=== PATIENT | male | born 1960 | race Caucasian/White ===

== ENCOUNTER 2019-08-28 09:19 | Emergency (ER) | payer OTHER, SELFPAY ==
--- NOTE | ~2019-08-28 | XR_ITS ---
XR hand RT min 3V DATE: 08/28/2019 09:52 INDICATION: Laceration at base of fifth finger 2 weeks ago; no Godinez's cyst TECHNIQUE: 3 views COMPARISON: None FINDINGS: No fracture or dislocation, periosteal reaction or bone destruction. No radiopaque foreign body or subcutaneous emphysema. IMPRESSION: Negative Reviewed, dictated and finalized at location A. IMPRESSION: Negative
[2019-08-28 09:35] VITALS: BP 128/92; PULSE 53; RESP 16; TEMP 36.4; O2SAT 98
--- NOTE | 2019-08-28 09:35 | ED.UPPEXIN ---
HPI - Extremity Injury (Upper) General Chief Complaint: Extremity Injury, Upper Stated Complaint: right hand injury Source: patient Mode of arrival: ambulatory Limitations: no limitations History of Present Illness HPI narrative: Jesus Hdez is a 59 yo male with a PMH of gout, copd, HTN, high cholesterol, who comes here for a 2week old laceration on hand. Complaining of pain on dorsum of hand by base of finger 5 Related Data Home Medications Medication Instructions Recorded Confirmed allopurinol [Zyloprim] 100 mg PO DAILY 08/28/19 08/28/19 cetirizine [Zyrtec] 10 mg PO DAILY 08/28/19 08/28/19 fluticasone propionate [Flonase 1 spray INTRANASAL BID 08/28/19 08/28/19 Allergy Relief] losartan 50 mg PO DAILY 08/28/19 08/28/19 metoprolol succinate [Toprol XL] 25 mg PO DAILY 08/28/19 08/28/19 montelukast [Singulair] 10 mg PO DAILY 08/28/19 08/28/19 naproxen [Naprosyn] 500 mg PO BID 08/28/19 08/28/19 pravastatin [Pravachol] 40 mg PO DAILY 08/28/19 08/28/19 Allergies Allergy/AdvReac Type Severity Reaction Status Date / Time No Known Allergies Allergy Verified 08/28/19 09:42 Review of Systems Review of Systems: Narrative: CONSTITUTIONAL: Denies fever, chills, sweats. EYES: Denies visual changes, redness, discharge. ENT: Denies rhinorrhea, congestion, sore throat, otalgia. CARDIOVASCULAR: Denies chest pain, palpitations, edema. RESPIRATORY: Denies dyspnea, wheezing, cough GASTROINTESTINAL: Denies abdominal pain, nausea, vomiting, diarrhea. GENITOURINARY: Denies dysuria, hematuria, abnormal discharge SKIN: Denies rash or itching. NEUROLOGIC: Denies numbness, or focal weakness. PSYCHIATRIC: Denies anxiety or depression. R hand pain PMFSH Family History Family History Other Cerebrovascular accident Diabetes mellitus Family history of arthritis Family history of gout Family history of malignant neoplasm Hypertension Social History Social History Smoking status: Never smoker Alcohol intake: never Gender identity (if verbalized by the patient): Female Comments At time of signature, I agree with nursing past medical, surgical, social and family history. There is no relevant family history pertinent to the presenting complaint. Exam Narrative: Exam Narrative: GENERAL: This is a well-nourished, well-developed patient, in mild distress. HEAD: normocephalic, atraumatic. EYES: Sclera clear/white. Vision is grossly intact. EARS: External ears normal, . Hearing grossly intact. NOSE: External nose normal without nasal discharge, nares without redness, no rhinorrhea. THROAT: Mucous membranes moist, NECK: Neck supple, non-tender CARDIOVASCULAR: Regular rate and rhythm without murmurs, gallops, or rubs. RESPIRATORY: Clear to auscultation. Breath sounds equal bilaterally. No wheezes, rales, or rhonchi. GASTROINTESTINAL: Abdomen soft, SKIN: warm, intact with no suspicious lesions or rash, good texture and turgor. NEURO: awake, alert, and oriented to person, place and time. There were no obvious focal neurologic abnormalities. Steady gait EXTREMITIES: Normal range of motion. R hand pain with use, unable to fully close fist, pain at base finger 5, dorsum, well healed and approximated laceration BACK: Nontender without deformity Course Course Emergency Course: Xray R hand- results. Negative for fracture or dislocation. No radiopaque foreign body o subcutaneous emphysema seen Vital Signs Vital signs: Vital Signs Temperature 97.6 F 08/28/19 09:35 Pulse Rate 53 L 08/28/19 09:35 Respiratory Rate 16 08/28/19 09:35 Blood Pressure 128/92 H 08/28/19 09:35 Pulse Oximetry 98 08/28/19 09:35 Temperature 97.6 F 08/28/19 09:35 Pulse Rate 53 L 08/28/19 09:35 Respiratory Rate 16 08/28/19 09:35 Blood Pressure 128/92 H 08/28/19 09:35 Pulse Oximetry 98 08/28/19 09:35 MDM - Extremit
== END 2019-08-28 10:18 | disposition home or self-care (01) ==
PROVIDERS: Emergency Provider Nurse Practitioner
DX: S69.91XS Unspecified injury of right wrist, hand and finger(s), sequela (principal); X58.XXXS Exposure to other specified factors, sequela; J44.9 Chronic obstructive pulmonary disease, unspecified; E78.00 Pure hypercholesterolemia, unspecified; M10.9 Gout, unspecified; I10 Essential (primary) hypertension
CPT/HCPCS: 73130; 99213; G0463

== ENCOUNTER 2019-09-20 11:56 | Emergency (ER) | payer OTHER, SELFPAY ==
--- NOTE | 2019-09-20 12:04 | ED.DENTAL ---
HPI - Dental/Oral General Chief complaint: Dental/Oral Stated complaint: tooth abscess Time Seen by Provider: 09/20/19 12:04 Source: patient Mode of arrival: ambulatory Limitations: no limitations History of Present Illness HPI Narrative: Jesus Álvarez is a 59 yo male with a history of gout, seasonal allergies, high blood pressure, high cholesterol, who comes here with tooth pain that has been going on for a long while . Patient has a tooth #18 with swelling and pain that is worsened today, makes it difficult for him to eat. Also Sunday he says but pain is what brought him here today. Patient requires simple instructions; poor understanding of physiology and ability to describe his medical condition Related Data Home Medications Medication Instructions Recorded Confirmed allopurinol [Zyloprim] 100 mg PO DAILY 08/28/19 08/28/19 cetirizine [Zyrtec] 10 mg PO DAILY 08/28/19 08/28/19 fluticasone propionate [Flonase 1 spray INTRANASAL BID 08/28/19 08/28/19 Allergy Relief] losartan 50 mg PO DAILY 08/28/19 08/28/19 metoprolol succinate [Toprol XL] 25 mg PO DAILY 08/28/19 08/28/19 montelukast [Singulair] 10 mg PO DAILY 08/28/19 08/28/19 naproxen [Naprosyn] 500 mg PO BID 08/28/19 08/28/19 pravastatin [Pravachol] 40 mg PO DAILY 08/28/19 08/28/19 Allergies Allergy/AdvReac Type Severity Reaction Status Date / Time No Known Allergies Allergy Verified 08/28/19 09:42 Review of Systems Review of Systems: Narrative: CONSTITUTIONAL: Denies fever, chills, sweats. EYES: Denies visual changes, redness, discharge. ENT: Denies rhinorrhea, congestion, sore throat, otalgia. CARDIOVASCULAR: Denies chest pain, palpitations, edema. RESPIRATORY: Denies dyspnea, wheezing, cough GASTROINTESTINAL: Denies abdominal pain, nausea, vomiting, diarrhea. GENITOURINARY: Denies dysuria, hematuria, abnormal discharge SKIN: Denies rash or itching. NEUROLOGIC: Denies numbness, or focal weakness. PSYCHIATRIC: Denies anxiety or depression. Tooth pain left lower back (#18) PMFSH Social History Social History (Reviewed 08/28/19 @ 09:44 by DONN Mcgrath Smoking status: Never smoker Alcohol intake: never Gender identity (if verbalized by the patient): Female Comments At time of signature, I agree with nursing past medical, surgical, social and family history. There is no relevant family history pertinent to the presenting complaint. Exam Narrative: Exam Narrative: GENERAL: This is a well-nourished, well-developed patient, in moderate distress. HEAD: normocephalic, atraumatic. EYES: Sclera clear/white. Vision is grossly intact. EARS: External ears normal, Hearing grossly intact. NOSE: External nose normal without nasal discharge, nares without redness, no rhinorrhea. THROAT: Mucous membranes moist, posterior pharynx erythema, LL tooth (18)- gum inflammation and tenderness NECK: Neck supple, CARDIOVASCULAR: Regular rate and rhythm without murmurs, gallops, or rubs. RESPIRATORY: Clear to auscultation. Breath sounds equal bilaterally. No wheezes, rales, or rhonchi. GASTROINTESTINAL: Abdomen soft, SKIN: warm, intact with no suspicious lesions or rash, good texture and turgor. NEURO: awake, alert, and oriented to person, place and time. There were no obvious focal neurologic abnormalities. Steady gait EXTREMITIES: Normal range of motion. BACK: Nontender without deformity Course Course Emergency Course: Started on insulin and Tylenol 3 Given directions on use of salt water gargle Follow-up with dentist on Sunday Vital Signs Vital signs: Vital Signs Temperature 97.6 F 09/20/19 12:07 Pulse Rate 57 L 09/20/19 12:07 Respiratory Rate 18 09/20/19 12:07 Blood Pressure 154/87 H 09/20/19 12:07 Pulse Oximetry 100 09/20/19 12:07 Temperature 97.6 F 09/20/19 12:07 Pulse Rate 57 L 09/20/19 12:07 Respiratory Rate 18 09/20/19 12:07 Blood Pressure 154/87 H 09/20/19 12:07 Pulse Oximetry 100 09/20/19 12:07
[2019-09-20 12:07] VITALS: BP 154/87; PULSE 57; RESP 18; TEMP 36.4; O2SAT 100
== END 2019-09-20 12:27 | disposition home or self-care (01) ==
PROVIDERS: Emergency Provider Nurse Practitioner
DX: K08.89 Other specified disorders of teeth and supporting structures (principal); E78.00 Pure hypercholesterolemia, unspecified; I10 Essential (primary) hypertension; M10.9 Gout, unspecified
CPT/HCPCS: 99213; G0463

== ENCOUNTER 2019-09-21 11:43 | Emergency (ER) | payer OTHER, SELFPAY ==
[2019-09-21 11:46] VITALS: BP 151/90; PULSE 60; RESP 17; TEMP 36.3; O2SAT 99
--- NOTE | 2019-09-21 12:04 | ED.GENADULT ---
HPI - General Adult General Chief complaint: Dental/Oral Stated complaint: tooth pain Time Seen by Provider: 09/21/19 11:49 Source: patient Mode of arrival: ambulatory Limitations: no limitations History of Present Illness HPI narrative: Patient is a 59-year-old male who presents to emergency department for evaluation of left lower jaw pain radiating to the left side of the face for the last several days with history of dental decay patient on arrival to emergency department in no distress has not taken anything for his symptoms denies URI symptoms notes he will follow with dentistry tomorrow to set up for reevaluation Related Data Home Medications Medication Instructions Recorded Confirmed allopurinol [Zyloprim] 100 mg PO DAILY 08/28/19 08/28/19 cetirizine [Zyrtec] 10 mg PO DAILY 08/28/19 08/28/19 fluticasone propionate [Flonase 1 spray INTRANASAL BID 08/28/19 08/28/19 Allergy Relief] losartan 50 mg PO DAILY 08/28/19 08/28/19 metoprolol succinate [Toprol XL] 25 mg PO DAILY 08/28/19 08/28/19 montelukast [Singulair] 10 mg PO DAILY 08/28/19 08/28/19 naproxen [Naprosyn] 500 mg PO BID 08/28/19 08/28/19 pravastatin [Pravachol] 40 mg PO DAILY 08/28/19 08/28/19 Allergies Allergy/AdvReac Type Severity Reaction Status Date / Time No Known Allergies Allergy Verified 09/21/19 11:44 Review of Systems Review of Systems: All systems reviewed & are unremarkable except as noted in HPI and below PMFSH Past Medical History Medical History (Updated 09/21/19 @ 12:06 by Jorge Matta PA-C) COPD (chronic obstructive pulmonary disease) Gout High blood pressure High cholesterol Seasonal allergies Social History Social History (Updated 09/21/19 @ 12:05 by Jorge Matta PA-C) Smoking status: Current every day smoker Alcohol intake: never Gender identity (if verbalized by the patient): Male Exam Narrative: Exam Narrative: GENERAL: Well-appearing, well-nourished, and in no acute distress. HEAD: Normocephalic, atraumatic. EYES: PERRLA and EOMI. ENT: Nares clear, no rhinorrhea or epistaxis. Mucous membranes moist. Oropharynx without tonsillar hypertrophy exudate or other lesions. Gross dental caries no other deformities floor the mouth is soft uvula midline no trismus or drooling NECK: Supple. No adenopathy or masses. CHEST: Clear to auscultation. No respiratory distress. No wheezes rales or rhonchi HEART: Regular rate and rhythm. No murmur heard. SKIN: Warm, dry, no rash. NEURO: No focal deficits. Alert and oriented x3. PSYCH: Normal mood and affect. Course Course Emergency Course: Patient in the room in no distress aware of case findings treatment plan and diagnosis Vital Signs Vital signs: Vital Signs Temperature 97.4 F L 09/21/19 11:46 Pulse Rate 60 09/21/19 11:46 Respiratory Rate 17 09/21/19 11:46 Blood Pressure 151/90 H 09/21/19 11:46 Pulse Oximetry 99 09/21/19 11:46 Temperature 97.4 F L 09/21/19 11:46 Pulse Rate 60 09/21/19 11:46 Respiratory Rate 17 09/21/19 11:46 Blood Pressure 151/90 H 09/21/19 11:46 Pulse Oximetry 99 09/21/19 11:46 Medical Decision Making MDM Narrative Medical decision making narrative: Paitents pain and complaint coupled with physical findings are consistant with dentalgia. There are no focal signs of space occupying lesions that are compromising to the ariway. The floor of the mouth is soft with no signs of Ludwigs Angina. Patient is without trismus or drooling and able to swallow secreations. Patient is felt appropriate for discharge home with dental follow up. Vital Signs Vital Signs: Vital Signs Temperature 97.4 F L 09/21/19 11:46 Pulse Rate 60 09/21/19 11:46 Respiratory Rate 17 09/21/19 11:46 Blood Pressure 151/90 H 09/21/19 11:46 Pulse Oximetry 99 09/21/19 11:46 Temperature 97.4 F L 09/21/19 11:46 Pulse Rate 60 09/21/19 11:46 Respiratory Rate 17 09/21/19 11:46 Blood Pressure 151/90 H 09/21/19 11:46
[2019-09-21 12:28] VITALS: BP 142/78; PULSE 78; RESP 20; O2SAT 99
== END 2019-09-21 12:31 | disposition home or self-care (01) ==
PROVIDERS: Emergency Provider Emergency Medicine
DX: K04.7 Periapical abscess without sinus (principal); J44.9 Chronic obstructive pulmonary disease, unspecified; M10.9 Gout, unspecified; I10 Essential (primary) hypertension; E78.00 Pure hypercholesterolemia, unspecified; F17.200 Nicotine dependence, unspecified, uncomplicated
CPT/HCPCS: 99283

== ENCOUNTER 2019-11-25 16:41 | Emergency (ER) | payer OTHER, SELFPAY ==
[2019-11-25 16:50] VITALS: BP 146/84; PULSE 59; RESP 16; TEMP 36.7; O2SAT 100
--- NOTE | 2019-11-25 17:02 | ED.GENADULT ---
HPI - General Adult General Chief complaint: Wound/Laceration Stated complaint: Laceration on finger Time Seen by Provider: 11/25/19 17:02 Source: patient Mode of arrival: ambulatory Limitations: no limitations History of Present Illness HPI narrative: 59-year-old male patient presents to the [facility] with complaints of a laceration to the left ring finger. Patient states he was picking up some trash in his yard today and states that he cut his self on his finger but unknown of what he cut it on. Patient denies any history of diabetes. Patient states he did get a tetanus shot about 3 or 4 years ago due to another cut on the opposite hand. Denies any numbness or tingling to the finger. Related Data Home Medications Medication Instructions Recorded Confirmed allopurinol [Zyloprim] 100 mg PO DAILY 11/25/19 11/25/19 cetirizine [Zyrtec] 10 mg PO DAILY 11/25/19 11/25/19 fluticasone propionate [Flonase] 1 spray INTRANASAL DAILY 11/25/19 11/25/19 hydrochlorothiazide 12.5 mg PO DAILY 11/25/19 11/25/19 losartan 50 mg PO DAILY 11/25/19 11/25/19 metoprolol succinate [Toprol XL] 25 mg PO DAILY 11/25/19 11/25/19 montelukast [Singulair] 10 mg PO DAILY 11/25/19 11/25/19 naproxen [Naprosyn] 500 mg PO BID 11/25/19 11/25/19 pravastatin [Pravachol] 40 mg PO DAILY 11/25/19 11/25/19 Allergies Allergy/AdvReac Type Severity Reaction Status Date / Time No Known Allergies Allergy Verified 11/25/19 17:01 Review of Systems Review of Systems: Narrative: CONSTITUTIONAL: Denies fever, chills, or sweats. EYES: Denies visual changes, redness, or discharge. ENT: Denies rhinorrhea, congestion, sore throat, or otalgia. CARDIOVASCULAR: Denies chest pain, palpitations, or edema. RESPIRATORY: Denies cough or dyspnea. GASTROINTESTINAL: Denies abdominal pain, nausea, vomiting, or diarrhea. GENITOURINARY: Denies dysuria or hematuria. SKIN: Denies rash or itching. Positive laceration to the left ring finger MUSCULOSKELETAL: Denies back pain, joint pain, or myalgia. NEUROLOGIC: Denies headache, numbness, or weakness. PSYCHIATRIC: Denies anxiety or depression. [facility] Past Medical History Medical History COPD (chronic obstructive pulmonary disease) Gout High blood pressure High cholesterol Seasonal allergies Family History Family History Other Cerebrovascular accident Diabetes mellitus Family history of arthritis Family history of gout Family history of malignant neoplasm Hypertension Social History Social History Smoking status: Current every day smoker Alcohol intake: never Gender identity (if verbalized by the patient): Male Comments At the time of my signature I agree with nursing past medical history, surgical, social, and family history. There is no relevant family history pertinent to the presenting complaint. Exam Narrative: Exam Narrative: GENERAL: Well-appearing, well-nourished, and in no acute distress. HEAD: Normocephalic, atraumatic. EYES: PERRLA and EOMI. ENT: Nares clear, no rhinorrhea or epistaxis. Mucous membranes moist. NECK: Supple. No lymphadenopathy CHEST: Clear to auscultation. No respiratory distress. HEART: Regular rate and rhythm. No murmur heard. Normal peripheral pulses. ABDOMEN: Soft, nontender, nondistended, normal active bowel sounds. EXTREMITIES: Normal range of motion. No edema. SKIN: Warm, dry, no rash. Patient has approximately 2.5 cm laceration on the palm side between the MCP and PIP joints. The laceration is well approximated and is pretty superficial. No obvious foreign bodies. Patient has excellent range of motion to the finger and hand. NEURO: No focal deficits. Alert and oriented x3. Course Reevaluation(s) Reevaluation #1: Discussed with patient I am going to discharge him home with some antibiotics just to decrease risk of
== END 2019-11-25 17:24 | disposition home or self-care (01) ==
PROVIDERS: Emergency Provider Nurse Practitioner Family
DX: S61.215A Laceration without foreign body of left ring finger without damage to nail, initial encounter (principal); W45.8XXA Other foreign body or object entering through skin, initial encounter; F17.200 Nicotine dependence, unspecified, uncomplicated; J44.9 Chronic obstructive pulmonary disease, unspecified; M10.9 Gout, unspecified; I10 Essential (primary) hypertension; E78.00 Pure hypercholesterolemia, unspecified
CPT/HCPCS: 12001; 99213; G0463

== ENCOUNTER 2020-02-06 09:52 | Emergency (ER) | payer OTHER, SELFPAY ==
[2020-02-06 09:56] VITALS: BP 103/70; PULSE 86; RESP 18; TEMP 35.7; O2SAT 99
--- NOTE | 2020-02-06 10:37 | ED.DENTAL ---
HPI - Dental/Oral General Chief complaint: Dental/Oral <Kiesha Braswell PA-C - Last Filed: 02/06/20 11:33> Stated complaint: dental/toothache <ALYSIA Benz Last Filed: 02/06/20 11:33> Time Seen by Provider: 02/06/20 10:13 <Kiesha Braswell PA-C - Last Filed: 02/06/20 11:33> Source: patient <ALYSIA Benz Last Filed: 02/06/20 11:33> Mode of arrival: ambulatory <ALYSIA Benz Last Filed: 02/06/20 11:33> Limitations: no limitations <ALYSIA Benz Last Filed: 02/06/20 11:33> History of Present Illness HPI Narrative: This is a 59-year-old male that presents the emergency department for toothache since yesterday. Reports he noted redness and swelling of the right side of his face yesterday as well which prompted him to be seen. He has not seen anybody for this yet or been on any antibiotics. Denies fevers. <Kiesha Braswell PA-C - Last Filed: 02/06/20 11:33> MD Complaint: tooth pain <ALYSIA Benz Last Filed: 02/06/20 11:33> Location: Tooth # (3) <ALYSIA Benz Last Filed: 02/06/20 11:33> Related Data Home medications: Home Medications Medication Instructions Recorded Confirmed allopurinol [Zyloprim] 100 mg PO DAILY 11/25/19 11/25/19 cetirizine [Zyrtec] 10 mg PO DAILY 11/25/19 11/25/19 fluticasone propionate [Flonase] 1 spray INTRANASAL DAILY 11/25/19 11/25/19 hydrochlorothiazide 12.5 mg PO DAILY 11/25/19 11/25/19 losartan 50 mg PO DAILY 11/25/19 11/25/19 metoprolol succinate [Toprol XL] 25 mg PO DAILY 11/25/19 11/25/19 montelukast [Singulair] 10 mg PO DAILY 11/25/19 11/25/19 naproxen [Naprosyn] 500 mg PO BID 11/25/19 11/25/19 pravastatin [Pravachol] 40 mg PO DAILY 11/25/19 11/25/19 <Kiesha Braswell PA-C - Last Filed: 02/06/20 11:33> Allergies/adverse reactions: Allergies Allergy/AdvReac Type Severity Reaction Status Date / Time No Known Allergies Allergy Verified 11/25/19 17:01 <Kiesha Braswell PA-C - Last Filed: 02/06/20 11:33> Review of Systems Review of Systems: Narrative: CONSTITUTIONAL: Denies fever EYES: Denies visual changes, redness, or discharge. ENT: Reports dentalgia. Denies sore throat, or otalgia. <Kiesha Braswell PA-C - Last Filed: 02/06/20 11:33> All systems reviewed & are unremarkable except as noted in HPI and below <Kiesha Braswell PA-C - Last Filed: 02/06/20 11:33> PMFSH Past Medical History Medical History: Medical History COPD (chronic obstructive pulmonary disease) Gout High blood pressure High cholesterol Seasonal allergies <Kiesha Braswell PA-C - Last Filed: 02/06/20 11:33> Family History Family History: Family History Other Cerebrovascular accident Diabetes mellitus Family history of arthritis Family history of gout Family history of malignant neoplasm Hypertension <Kiesha Braswell PA-C - Last Filed: 02/06/20 11:33> Social History Social History: Social History Smoking status: Current every day smoker Alcohol intake: never Gender identity (if verbalized by the patient): Male <ALYSIA Benz Last Filed: 02/06/20 11:33> Exam Narrative: Exam Narrative: GENERAL: Well-appearing, well-nourished, and in no acute distress. HEAD: Normocephalic, atraumatic. EYES: PERRLA and EOMI. ENT: Nares clear, no rhinorrhea or epistaxis. Mucous membranes moist. Oropharynx without tonsillar hypertrophy exudate or other lesions. Bilateral TMs pearly perez non-bulging. Tooth #3 tender to palpation, no surrounding erythema or fluctuance to suggest abscess. Mild to moderate right sided facial swelling of the lower eyelid and cheek NECK: Supple. No adenopathy or masses. CHEST: Airway patent EXTREMITIES: Normal range of motion. No edema. SKIN: Warm, dry, no rash.
[2020-02-06] MEDS: KETOROLAC 30 MG/ML VIAL (*BKC) IV PUSH (10:40)
[2020-02-06 10:53] LABS: Basophils Absolute Auto 0.1 K/mm3 (0.0-0.1); Basophils Percent Auto 0.5 % (0.2-1.2); Eosinophils Percent Auto 0.1 % (0-4.4); Hematocrit 43.5 % (42.0-52.0); Hemoglobin 15.3 g/dL (14.0-18.0); Immature Granulocyte Absolute 0.03 K/mm3 (0.00-0.031); Immature Granulocyte Percent A 0.2 % (0-0.5); Lymphocytes Absolute Auto 0.72 K/mm3 (0.9-3.2); Lymphocytes Percent Auto 4.9 % (18.3-44.2); Mean Corpuscular HGB Conc 35.2 g/dl (32-36); Mean Corpuscular Hemoglobin 32.3 pg (26-34); Mean Platelet Volume 11.7 fl (7.4-10.4); Monocytes Absolute Auto 1.2 K/mm3 (0.1-0.6); Neutrophils Absolute Auto 12.7 K/mm3 (1.3-6.7); Neutrophils Percent Auto 86.3 % (45.5-73.1); Platelet Count Result 218 k/mm3 (150-375); Red Blood Count 4.73 M/mm3 (4.6-6.20); Red Cell Distribution Width 11.9 % (11.5-14.5); White Blood Count 14.8 K/mm3 (4.5-10.0)
[2020-02-06 11:11] LABS: Anion Gap 13 mmol/L (8-16); Blood Urea Nitrogen 19 mg/dL (9-20); Calcium 9.6 mg/dL (8.4-10.2); Carbon Dioxide 23 mmol/L (22-30); Chloride 103 mmol/L (98-107); Estimated CRCL calculation 58 ml/min; Estimated Glomerular Filt Rate 56; Glucose 119 mg/dL (75-110); Potassium 4.4 mmol/L (3.4-5.0); Sodium 139 mmol/L (137-145)
[2020-02-06 11:19] LABS: CRP 13.9 mg/dL (<1.0)
--- NOTE | 2020-02-06 11:19 | PC.NURSE ---
patient refuses ct scan and requests iv to be removed. patient states he has plans at noon and he just wants his pills and to leave
[2020-02-06 11:39] VITALS: O2SAT 100
[2020-02-06 11:49] LABS: Erythrocyte Sedimentation Rate 18 mm/hr (0-20)
[2020-02-06 11:52] VITALS: BP 104/70; PULSE 70; RESP 12; O2SAT 99
== END 2020-02-06 11:53 | disposition home or self-care (01) ==
PROVIDERS: Physician Assistant; Emergency Provider General Practice
DX: K08.89 Other specified disorders of teeth and supporting structures (principal); J44.9 Chronic obstructive pulmonary disease, unspecified; M10.9 Gout, unspecified; I10 Essential (primary) hypertension; E78.00 Pure hypercholesterolemia, unspecified; F17.200 Nicotine dependence, unspecified, uncomplicated
CPT/HCPCS: 36415; 80048; 85025; 85652; 86140; 96374; 99284; J1885

== ENCOUNTER → 2020-02-20 08:33 | Outpatient (CLI) | payer OTHER, SELFPAY ==
--- NOTE | ~2020-02-20 | XR_ITS ---
EXAMINATION: XR chest 2V 02/20/2020 09:04 INDICATION: Shortness of breath PROCEDURE: 2 View chest COMPARISON: 08/03/2017 FINDINGS: The lungs are clear. The cardiomediastinal silhouette is within normal limits. There are no pleural effusions. There is no pneumothorax suspected. IMPRESSION: 1: NO ACUTE CARDIOPULMONARY DISEASE. Reviewed, dictated and finalized at location A. [employer]
--- NOTE | ~2020-02-20 | XR_ITS ---
XR_[id number] DATE: 02/20/2020 09:04 INDICATION: Pain at base of neck for years. No injury. TECHNIQUE: AP, open-mouth, lateral, swimmer views COMPARISON: None FINDINGS: There is straightening of the cervical spine which may be due to muscle spasm. Normal alignment of the cervical spine. There is no fracture or dislocation or locked facet. C1 and C 2 are normally aligned and the odontoid process is intact. There is minimal retrolisthesis at C3-4. There is anterior spurring at C4-5, C5-6 and C6-7, but the cervical interspaces are relatively preser val. There is uncovertebral joint spurring on the right at C5-6. IMPRESSION: Straightening of the cervical spine Mild degenerative changes Reviewed, dictated and finalized at Location [facility]. Reviewed, dictated and finalized at location B. [employer] [employer]
== END ==
PROVIDERS: PCP Emergency Medicine; Visit Provider Emergency Medicine
DX: M50.30 Other cervical disc degeneration, unspecified cervical region (principal)
CPT/HCPCS: 71046; 72040

== ENCOUNTER 2020-06-19 16:39 | Emergency (ER) | payer OTHER, SELFPAY ==
--- NOTE | ~2020-06-19 | XR_ITS ---
EXAMINATION: XR shoulder LT min 2V DATE: 06/19/2020 17:32 INDICATION: Left shoulder pain. TECHNIQUE: 4 views of left shoulder were obtained. COMPARISON: Left shoulder radiographs 02/22/2010 FINDINGS: Bone alignment is normal. No fracture. There is moderate osteoarthritis of glenohumeral candace nt and acromioclavicular joint. IMPRESSION: 1. Polyarticular osteoarthritis. Reviewed, dictated and finalized at location A.
--- NOTE | ~2020-06-19 | XR_ITS ---
EXAMINATION: XR cervical spine 4-5V DATE: 06/19/2020 17:32 INDICATION: Neck pain. TECHNIQUE: 5 views of cervical spine were obtained. COMPARISON: Cervical spine radiographs 02/20/2020 FINDINGS: Bone alignment is normal. Vertebral body heights are normal. There is mildly decreased disc height at C4-C5. The facet joints are unremarkable. No central canal stenosis or prevertebral soft t issue swelling. IMPRESSION: 1. Mild cervical spondylosis. Reviewed, dictated and finalized at location A.
[2020-06-19 16:52] VITALS: BP 169/82; PULSE 64; RESP 16; TEMP 36.3; O2SAT 100
[2020-06-19 17:07] VITALS: BP 169/82; PULSE 64; RESP 16; TEMP 36.3; O2SAT 100
--- NOTE | 2020-06-19 17:16 | ED.FALL ---
HPI - Fall General Chief Complaint: Fall Stated Complaint: back/neck/ shoulder pain Time Seen by Provider: 06/19/20 17:00 Source: patient and RN notes reviewed Mode of arrival: ambulatory Limitations: no limitations History of Present Illness HPI Narrative: Patient presents today after a fall 1 hour prior to arrival. He did drive himself here today. He is complaining of generalized headache, neck pain, left shoulder pain, right hip pain, lightheadedness. States he slipped on a wet mat on a concrete floor at home. Reports that he possibly fell onto his left side, but somehow struck his right cheek on the ground as well. Patient is a poor historian. Denies loss of consciousness, but states he almost lost consciousness as he was driving to urgent care today due to the severe pain in his shoulder. His most severe complaint is his left shoulder pain. Denies dizziness, vision changes, nausea or vomiting. Currently rates his shoulder pain 10/10, headache 9/10, right hip pain 4/10. He has not tried any [id number] treatment prior to arrival. He does not take any blood thinners or aspirin, but takes 500 mg of naproxen twice daily for his chronic arthritis. Patient is up-to-date on his tetanus vaccine. MD complaint: fall Related Data Home Medications Medication Instructions Recorded Confirmed allopurinol [Zyloprim] 100 mg PO DAILY 11/25/19 06/19/20 cetirizine [Zyrtec] 10 mg PO DAILY 11/25/19 06/19/20 fluticasone propionate [Flonase] 1 spray INTRANASAL DAILY 11/25/19 06/19/20 hydrochlorothiazide 12.5 mg PO DAILY 11/25/19 06/19/20 losartan 50 mg PO DAILY 11/25/19 06/19/20 metoprolol succinate [Toprol XL] 25 mg PO DAILY 11/25/19 06/19/20 montelukast [Singulair] 10 mg PO DAILY 11/25/19 06/19/20 naproxen [Naprosyn] 500 mg PO BID 11/25/19 06/19/20 pravastatin [Pravachol] 40 mg PO DAILY 11/25/19 06/19/20 ergocalciferol (vitamin D2) 1.25 mcg PO WEEKLY 06/19/20 06/19/20 Allergies Allergy/AdvReac Type Severity Reaction Status Date / Time No Known Allergies Allergy Verified 11/25/19 17:01 Review of Systems Review of Systems: Narrative: CONSTITUTIONAL: Denies body aches, fever, chills, or sweats. EYES: Denies visual changes, redness, or discharge. ENT: Denies rhinorrhea, congestion, sore throat, or otalgia. CARDIOVASCULAR: Denies chest pain, palpitations, or edema. RESPIRATORY: Denies cough or dyspnea. GASTROINTESTINAL: Denies abdominal pain, nausea, vomiting, or diarrhea. GENITOURINARY: Denies dysuria or hematuria. SKIN: Denies rash, itching. + Right cheek abrasion MUSCULOSKELETAL: Denies myalgia.+ Neck pain, left shoulder pain, right hip pain NEUROLOGIC: Denies numbness, tingling, or weakness. + Lightheaded, headache PSYCH: Denies depression or anxiety. PMFSH Past Medical History Medical History (Updated 06/20/20 @ 00:01 by Ekaterina Corrales) Arthritis COPD (chronic obstructive pulmonary disease) Gout High blood pressure High cholesterol Seasonal allergies Family History Family History Other Cerebrovascular accident Diabetes mellitus Family history of arthritis Family history of gout Family history of malignant neoplasm Hypertension Social History Social History Smoking status: Current every day smoker Alcohol intake: never Gender identity (if verbalized by the patient): Male Comments At time of signature, I have reviewed and agree with nursing past medical, surgical, social and family history unless otherwise noted. Please see nursing chart for further information. There is no relevant family history pertinent to the presenting complaint Exam Narrative: Exam Narrative: GENERAL: Well-appearing, well-nourished, and in no acute distress. HEAD: Normocephalic. + 1.5 to 2 cm circular superficial contusion to the anterior right scalp crown that patient was not aware of until found by this prov
== END 2020-06-19 17:59 | disposition left against medical advice (07) ==
PROVIDERS: Emergency Provider Nurse Practitioner
DX: S00.83XA Contusion of other part of head, initial encounter (principal); S16.1XXA Strain of muscle, fascia and tendon at neck level, initial encounter; S46.912A Strain of unspecified muscle, fascia and tendon at shoulder and upper arm level, left arm, initial encounter; W01.0XXA Fall on same level from slipping, tripping and stumbling without subsequent striking against object, initial encounter; M19.90 Unspecified osteoarthritis, unspecified site; J44.9 Chronic obstructive pulmonary disease, unspecified; M10.9 Gout, unspecified; I10 Essential (primary) hypertension; E78.00 Pure hypercholesterolemia, unspecified; F17.200 Nicotine dependence, unspecified, uncomplicated
CPT/HCPCS: 72050; 73030; 99214; G0463

== ENCOUNTER 2021-03-28 15:21 | Emergency (ER) | payer OTHER, SELFPAY ==
--- NOTE | 2021-03-28 15:31 | ED.GENADULT ---
HPI - General Adult General Chief complaint: Upper Respiratory Infection Stated complaint: Allergies Time Seen by Provider: 03/28/21 15:32 Source: patient, family, RN notes reviewed and old records reviewed Mode of arrival: ambulatory Limitations: no limitations History of Present Illness HPI narrative: 60-year-old male presents to the [facility] with complaints of sinus congestion pain and pressure. Patient reports its been going on for maybe 2 days, maybe 2 weeks. Patient is not a very good historian. Patient patient denies fevers. Patient states he has had things similar in the past, couple years ago. Related Data Home Medications Medication Instructions Recorded Confirmed allopurinol [Zyloprim] 100 mg PO DAILY 11/25/19 03/28/21 cetirizine [Zyrtec] 10 mg PO DAILY 11/25/19 03/28/21 fluticasone propionate [Flonase] 1 spray INTRANASAL DAILY 11/25/19 03/28/21 hydrochlorothiazide 12.5 mg PO DAILY 11/25/19 03/28/21 losartan 50 mg PO DAILY 11/25/19 03/28/21 montelukast [Singulair] 10 mg PO DAILY 11/25/19 03/28/21 pravastatin [Pravachol] 40 mg PO DAILY 11/25/19 03/28/21 ergocalciferol (vitamin D2) 1.25 mcg PO WEEKLY 06/19/20 03/28/21 diclofenac sodium 75 mg PO DAILY 03/28/21 03/28/21 Allergies Allergy/AdvReac Type Severity Reaction Status Date / Time No Known Allergies Allergy Verified 03/28/21 15:42 Review of Systems Review of Systems: All systems reviewed & are unremarkable except as noted in HPI and below Constitutional: Constitutional: Reports no additional constitutional complaints, Denies chills, Denies fever(s) and Denies headache(s) Eyes: Eyes: Reports no additional eye complaints ENT: Reports as per HPI, Denies vertigo, Denies dizziness, Denies headache(s), Reports nasal congestion, Reports nasal discharge and Denies sore throat Cardiovascular: Cardiovascular: Reports no additional cardiovascular complaints, Denies chest pain, Denies syncope, Denies rapid heart rate and Denies dyspnea Respiratory: Respiratory: Reports no additional respiratory complaints, Denies cough, Denies dyspnea and Denies wheezing Gastrointestinal: Gastrointestinal: Reports no additional gastrointestinal complaints, Denies abdominal pain, Denies diarrhea, Denies nausea and Denies vomiting Musculoskeletal: Musculoskeletal: Reports no additional musculoskeletal complaints and Denies numbness Integumentary/Breasts: Skin/Breast: Reports system reviewed and no additional complaints, except as docu Neurologic: Reports system reviewed and no additional complaints, except as documented, Denies vertigo, Denies dizziness, Denies syncope, Denies headache(s), Denies focal weakness and Denies numbness Psychiatric: Psychiatric: Reports no additional psychiatric complaints Allergic/Immunologic: Allergic/Immunologic: Reports no additional allergic/immunologic complaints and Denies wheezing PMFSH Past Medical History Medical History Arthritis COPD (chronic obstructive pulmonary disease) Gout High blood pressure High cholesterol Seasonal allergies Family History Family History Other Cerebrovascular accident Diabetes mellitus Family history of arthritis Family history of gout Family history of malignant neoplasm Hypertension Social History Social History Smoking status: Current every day smoker Alcohol intake: never Gender identity (if verbalized by the patient): Male Comments At the time of my signature, I reviewed and agree with the nursing past medical, surgical, social, and family history. There is no relevant family history pertinent to the patient complaint. Exam Const: General: cooperative, healthy appearing, no acute distress, well developed, alert and awake Nutritional Appearance: well nourished Orientation/consciousness: patient oriented x3 Limitations: no limitations [facility]
[2021-03-28 15:33] VITALS: BP 138/85; PULSE 70; RESP 18; TEMP 36.4; O2SAT 100
== END 2021-03-28 15:50 | disposition home or self-care (01) ==
PROVIDERS: Emergency Provider Nurse Practitioner
DX: J01.90 Acute sinusitis, unspecified (principal); F17.200 Nicotine dependence, unspecified, uncomplicated; M19.90 Unspecified osteoarthritis, unspecified site; J44.9 Chronic obstructive pulmonary disease, unspecified; M10.9 Gout, unspecified; E78.00 Pure hypercholesterolemia, unspecified; I10 Essential (primary) hypertension
CPT/HCPCS: 99213; G0463

== ENCOUNTER 2021-07-02 17:00 | Emergency (ER) | payer OTHER, SELFPAY ==
--- NOTE | 2021-07-02 17:08 | ED.EXTPRO ---
HPI - Extremity Problem General Chief complaint: Extremity Injury, Upper Stated complaint: left shoulder pain Time Seen by Provider: 07/02/21 17:09 Source: patient and RN notes reviewed Mode of arrival: ambulatory Limitations: no limitations History of Present Illness HPI Narrative: 60-year-old male presents to the [facility] with left shoulder pain after doing yard work yesterday. Patient reports he has had shoulder pain for 15 years but it been worse after doing yard work yesterday. Patient states I am here for good pain medicine so I can celebrate my birthday tomorrow. Has decreased range of motion. Tenderness throughout the entire shoulder. Denies any chest pain or shortness of breath. No nausea vomiting or diarrhea. Denies abdominal pain. Positive radial pulse. Sensation intact distal to pain. Full range of motion of the elbow and the wrist. Strong flexible shaft winder noted. Capillary refill under 2 seconds Reports that he supposed to have rotator cuff surgery, does not want to get it done or go to the hospital due to the virus. Denies any new trauma Related Data Home Medications Medication Instructions Recorded Confirmed allopurinol [Zyloprim] 100 mg PO DAILY 11/25/19 03/28/21 cetirizine [Zyrtec] 10 mg PO DAILY 11/25/19 03/28/21 fluticasone propionate [Flonase] 1 spray INTRANASAL DAILY 11/25/19 03/28/21 hydrochlorothiazide 12.5 mg PO DAILY 11/25/19 03/28/21 losartan 50 mg PO DAILY 11/25/19 03/28/21 montelukast [Singulair] 10 mg PO DAILY 11/25/19 03/28/21 pravastatin [Pravachol] 40 mg PO DAILY 11/25/19 03/28/21 ergocalciferol (vitamin D2) 1.25 mcg PO WEEKLY 06/19/20 03/28/21 diclofenac sodium 75 mg PO DAILY 03/28/21 03/28/21 Allergies Allergy/AdvReac Type Severity Reaction Status Date / Time No Known Allergies Allergy Verified 03/28/21 15:42 Review of Systems Review of Systems: All systems reviewed & are unremarkable except as noted in HPI and below Constitutional: Constitutional: Reports no additional constitutional complaints, Denies chills and Denies fever(s) Eyes: Eyes: Reports no additional eye complaints ENT: Reports system reviewed and no additional complaints, except as documented Cardiovascular: Cardiovascular: Reports no additional cardiovascular complaints Respiratory: Respiratory: Reports no additional respiratory complaints Gastrointestinal: Gastrointestinal: Reports no additional gastrointestinal complaints Musculoskeletal: Musculoskeletal: Reports as per HPI, Reports arthralgias (Left shoulder), Denies joint swelling, Reports limited range of motion and Denies numbness Integumentary/Breasts: Skin/Breast: Reports system reviewed and no additional complaints, except as docu Neurologic: Reports system reviewed and no additional complaints, except as documented Psychiatric: Psychiatric: Reports no additional psychiatric complaints Allergic/Immunologic: Allergic/Immunologic: Reports no additional allergic/immunologic complaints PMFSH Past Medical History Medical History Arthritis COPD (chronic obstructive pulmonary disease) Gout High blood pressure High cholesterol Seasonal allergies Family History Family History Other Cerebrovascular accident Diabetes mellitus Family history of arthritis Family history of gout Family history of malignant neoplasm Hypertension Social History Social History Smoking status: Current every day smoker Alcohol intake: never Gender identity (if verbalized by the patient): Male Comments At the time of my signature, I reviewed and agree with the nursing past medical, surgical, social, and family history. There is no relevant family history pertinent to the patient complaint. Exam Const: General: healthy appearing, no acute distress and alert Nutritional Appearance: well nourished
[2021-07-02 17:09] VITALS: BP 112/68; PULSE 61; RESP 16; TEMP 36.2; O2SAT 98
== END 2021-07-02 17:16 | disposition home or self-care (01) ==
PROVIDERS: Emergency Provider Nurse Practitioner
DX: M25.512 Pain in left shoulder (principal); F17.200 Nicotine dependence, unspecified, uncomplicated; M19.90 Unspecified osteoarthritis, unspecified site; J44.9 Chronic obstructive pulmonary disease, unspecified; M10.9 Gout, unspecified; E78.00 Pure hypercholesterolemia, unspecified; I10 Essential (primary) hypertension
CPT/HCPCS: 99213; G0463

== ENCOUNTER 2021-11-11 12:12 | Emergency (ER) | payer OTHER, SELFPAY ==
[2021-11-11 12:33] VITALS: BP 133/72; PULSE 60; RESP 18; TEMP 36.1; O2SAT 100
[2021-11-11 12:35] VITALS: BP 133/72; PULSE 60; RESP 18; TEMP 36.1; O2SAT 100
--- NOTE | 2021-11-11 13:03 | ED.BACK ---
HPI - Back Pain/Injury General Chief Complaint: Back Pain/Injury Stated Complaint: Back pain Time Seen by Provider: 11/11/21 13:03 Source: patient, family, RN notes reviewed and old records reviewed Mode of arrival: ambulatory Limitations: no limitations History of Present Illness HPI Narrative: 61-year-old male presents to the [facility] with complaints of back pain. Around the right scapula. No bruising, swelling, signs of infection. No rash. States is been going on about a week it hurts more when he rotates his arm. States he has been taking muscle relaxers that were prescribed for his rotator cuff. MD elicited complaint: back pain Related Data Home Medications Medication Instructions Recorded Confirmed allopurinol 100 mg tablet 100 mg PO DAILY 11/25/19 11/11/21 (Zyloprim) cetirizine 10 mg tablet (Zyrtec) 10 mg PO DAILY 11/25/19 11/11/21 hydrochlorothiazide 12.5 mg capsule 12.5 mg PO DAILY 11/25/19 11/11/21 losartan 50 mg tablet 50 mg PO DAILY 11/25/19 11/11/21 montelukast 10 mg tablet 10 mg PO DAILY 11/25/19 11/11/21 (Singulair) ergocalciferol (vitamin D2) 1,250 1.25 mcg PO WEEKLY 06/19/20 11/11/21 mcg (50,000 unit) capsule diclofenac sodium 75 mg 75 mg PO DAILY 03/28/21 11/11/21 tablet,delayed release Allergies Allergy/AdvReac Type Severity Reaction Status Date / Time No Known Allergies Allergy Verified 03/28/21 15:42 Review of Systems Review of Systems: All systems reviewed & are unremarkable except as noted in HPI and below Constitutional: Constitutional: Reports no additional constitutional complaints and Denies weakness Eyes: Eyes: Reports no additional eye complaints ENT: Reports system reviewed and no additional complaints, except as documented Cardiovascular: Cardiovascular: Reports no additional cardiovascular complaints and Denies chest pain Respiratory: Respiratory: Reports no additional respiratory complaints Gastrointestinal: Gastrointestinal: Reports no additional gastrointestinal complaints and Denies abdominal pain Musculoskeletal: Musculoskeletal: Reports as per HPI, Reports back pain and Denies numbness Integumentary/Breasts: Skin/Breast: Reports system reviewed and no additional complaints, except as docu Neurologic: Reports system reviewed and no additional complaints, except as documented, Denies focal weakness, Denies numbness and Denies weakness Psychiatric: Psychiatric: Reports no additional psychiatric complaints Allergic/Immunologic: Allergic/Immunologic: Reports no additional allergic/immunologic complaints [facility] Past Medical History Medical History Arthritis COPD (chronic obstructive pulmonary disease) Gout High blood pressure High cholesterol Seasonal allergies Family History Family History Other Cerebrovascular accident Diabetes mellitus Family history of arthritis Family history of gout Family history of malignant neoplasm Hypertension Social History Social History Smoking status: Current every day smoker Alcohol intake: never Gender identity (if verbalized by the patient): Male Comments At the time of my signature, I reviewed and agree with the nursing past medical, surgical, social, and family history. There is no relevant family history pertinent to the patient complaint. Exam Const: General: healthy appearing, no acute distress and alert Nutritional Appearance: well nourished Orientation/consciousness: patient oriented x3 Limitations: no limitations HENMT: Head: normal to inspection Ears: external ears normal Eyes: Pupils: Equal, round and reactive pupils present Neck: Neck: normal visual inspection, no lymphadenopathy and no meningeal signs Chest: Chest palpation & inspection: normal inspection of the chest Resp: Effort & Inspection: normal respirato
== END 2021-11-11 13:25 | disposition home or self-care (01) ==
PROVIDERS: Emergency Provider Nurse Practitioner
DX: M54.6 Pain in thoracic spine (principal); F17.200 Nicotine dependence, unspecified, uncomplicated; M19.90 Unspecified osteoarthritis, unspecified site; J44.9 Chronic obstructive pulmonary disease, unspecified; M10.9 Gout, unspecified; I10 Essential (primary) hypertension; E78.00 Pure hypercholesterolemia, unspecified
CPT/HCPCS: 99212; G0463

== ENCOUNTER 2022-01-07 22:09 | Emergency (ER) | payer OTHER, SELFPAY ==
--- NOTE | ~2022-01-07 | XR_ITS ---
EXAMINATION: XR chest 2V Exam Date/Time: 01/07/2022 22:50 [employer] HISTORY: dizziness, My heart isn't beating right Comparison: 02/20/2020. RESULT: Lines, tubes, and devices: None. Lungs and pleura: Clear. Cardiomediastinal silhouette: Stable. Other: No acute osseous or upper abdominal finding. IMPRESSION: No acute cardiopulmonary process. Reviewed, dictated and finalized at location K. [employer]
--- NOTE | 2022-01-07 22:16 | ECG_ITS ---
Measurements Intervals [place] Rate: 73 P: 27 [place]: 200 QRS: -1 QRSD: 105 T: -5 QT: 372 QTc: 413 Interpretive Statements SINUS RHYTHM DELAYED PRECORDIAL R/S TRANSITION BORDERLINE ST-T WAVE ABNORMALITY- INFERIOR LEADS BORDERLINE ECG NO PREVIOUS ECG AVAILABLE FOR COMPARISON Electronically Signed On 01-08-2022 9:09:58 CLERK ENTRY LEVEL by Shay Merino D.O.
[2022-01-07 22:17] VITALS: BP 138/74; PULSE 80; RESP 16; TEMP 36.4; O2SAT 99
[2022-01-07 22:35] LABS: Basophils Absolute Auto 0.1 K/mm3 (0.0-0.1); Eosinophils Absolute Auto 0.2 K/mm3 (0-0.3); Eosinophils Percent Auto 2.4 % (0-4.4); Hematocrit 41.6 % (42.0-52.0); Hemoglobin 14.2 g/dL (14.0-18.0); Immature Granulocyte Absolute 0.02 K/mm3 (0.00-0.031); Immature Granulocyte Percent A 0.3 % (0-0.5); Lymphocytes Absolute Auto 1.48 K/mm3 (0.9-3.2); Mean Corpuscular HGB Conc 34.1 g/dl (32-36); Mean Corpuscular Hemoglobin 31.8 pg (26-34); Mean Corpuscular Volume 93.1 fl (80-100); Mean Platelet Volume 10.9 fl (7.4-10.4); Monocytes Absolute Auto 0.8 K/mm3 (0.1-0.6); Neutrophils Absolute Auto 3.7 K/mm3 (1.3-6.7); Neutrophils Percent Auto 59.3 % (45.5-73.1); Platelet Count Result 199 k/mm3 (150-375); Red Blood Count 4.47 M/mm3 (4.6-6.20); White Blood Count 6.2 K/mm3 (4.5-10.0)
[2022-01-07 22:46] LABS: Alanine Aminotransferase 24 U/L (6-50); Albumin Level 4.5 g/dL (3.5-5.1); Alkaline Phosphatase 63 U/L (38-126); Anion Gap 11 mmol/L (8-16); Aspartate Amino Transferase 34 U/L (17-59); Bilirubin,Total 0.4 mg/dL (0.2-1.3); Blood Urea Nitrogen 20 mg/dL (9-20); Calcium 8.9 mg/dL (8.4-10.2); Carbon Dioxide 29 mmol/L (22-30); Chloride 100 mmol/L (98-107); Estimated CRCL calculation 61 ml/min; Estimated Glomerular Filt Rate > 60; Glucose 100 mg/dL (65-110); Lipase 1469 U/L (23-300); Potassium 3.9 mmol/L (3.4-5.0); Sodium 140 mmol/L (137-145)
[2022-01-07 22:47] LABS: Prothrombin Time 12.8 Seconds (11.1-14.7)
[2022-01-07 22:48] LABS: Partial Thromboplastin Time 31.5 SECONDS (22.3-36.8)
--- NOTE | 2022-01-07 22:51 | PC.NURSE ---
Patient refused IV at this time.
[2022-01-07 22:57] LABS: Troponin I < 0.012 ng/mL (0.000-0.034)
[2022-01-07] MEDS: ASPIRIN 81 MG CHEWABLE TABLET 324 MG PO (23:11)
--- NOTE | 2022-01-07 23:37 | ED.DIZZY ---
HPI - Dizziness General Chief Complaint: Dizziness Stated Complaint: short of breath Time Seen by Provider: 01/07/22 23:15 History of Present Illness HPI Narrative: Patient is a 61-year-old male with a history of hypertension, gout presenting with an episode of lightheadedness. Patient states that several months ago he had an episode where his heart rate was low and he felt similar to that episode. States that he felt a little lightheaded. States that this is completely resolved and he now feels great. He denies any chest pain or shortness of breath. He denies any other symptoms at this time. No fevers, headache, abdominal pain, nausea or vomiting, diarrhea, leg swelling, dysuria. Related Data Home Medications Medication Instructions Recorded Confirmed allopurinol 100 mg tablet 100 mg PO DAILY 11/25/19 11/11/21 (Zyloprim) cetirizine 10 mg tablet (Zyrtec) 10 mg PO DAILY 11/25/19 11/11/21 hydrochlorothiazide 12.5 mg capsule 12.5 mg PO DAILY 11/25/19 11/11/21 losartan 50 mg tablet 50 mg PO DAILY 11/25/19 11/11/21 montelukast 10 mg tablet 10 mg PO DAILY 11/25/19 11/11/21 (Singulair) ergocalciferol (vitamin D2) 1,250 1.25 mcg PO WEEKLY 06/19/20 11/11/21 mcg (50,000 unit) capsule diclofenac sodium 75 mg 75 mg PO DAILY 03/28/21 11/11/21 tablet,delayed release Allergies Allergy/AdvReac Type Severity Reaction Status Date / Time No Known Allergies Allergy Verified 03/28/21 15:42 Review of Systems Review of Systems: All systems reviewed & are unremarkable except as noted in HPI and below PMFSH Past Medical History Medical History Arthritis COPD (chronic obstructive pulmonary disease) Gout High blood pressure High cholesterol Seasonal allergies Family History Family History Other Cerebrovascular accident Diabetes mellitus Family history of arthritis Family history of gout Family history of malignant neoplasm Hypertension Social History Social History Smoking status: Current every day smoker Alcohol intake: never Gender identity (if verbalized by the patient): Male Exam Narrative: GENERAL: Well-appearing, well-nourished, and in no acute distress. HEAD: Normocephalic, atraumatic. EYES: PERRLA and EOMI. ENT: Nares clear, no rhinorrhea or epistaxis. Mucous membranes moist. NECK: Supple. CHEST: Clear to auscultation. No respiratory distress. HEART: Regular rate and rhythm. No murmur heard. Normal peripheral pulses. ABDOMEN: Soft, nontender, nondistended, normal active bowel sounds. EXTREMITIES: Normal range of motion. No edema. SKIN: Warm, dry, no rash. NEURO: No focal deficits. Alert and oriented x3. PSYCH: Normal mood and affect. Course Vital Signs Vital signs: Vital Signs Temperature 97.5 F L 01/07/22 22:17 Pulse Rate 80 01/07/22 22:17 Respiratory Rate 16 01/07/22 22:17 Blood Pressure 138/74 01/07/22 22:17 Pulse Oximetry 99 01/07/22 22:17 Oxygen Delivery Room Air 01/07/22 22:17 Temperature 97.5 F L 01/07/22 22:17 Pulse Rate 80 01/07/22 22:17 Respiratory Rate 16 01/07/22 22:17 Blood Pressure 138/74 01/07/22 22:17 Pulse Oximetry 99 01/07/22 22:17 Oxygen Delivery Room Air 01/07/22 22:17 MDM - Dizziness MDM Narrative Medical decision making narrative: Patient is a 61-year-old male presenting with an episode of lightheadedness. Vitals within normal limits. Exam is unremarkable. On my evaluation, the patient immediately is asking to go home. States that he feels great. EKG per my interpretation shows normal sinus rhythm, normal axis and intervals, no acute ischemic changes. Chest x-ray shows no acute abnormalities. Blood work is remarkable for a lipase of 1400. Patient denies any abdominal symptoms whatsoever. He denies any pain, nausea, vomiting. His abdo
== END 2022-01-07 23:59 | disposition home or self-care (01) ==
PROVIDERS: Emergency Provider Emergency Medicine
DX: R42 Dizziness and giddiness (principal); R74.8 Abnormal levels of other serum enzymes; J44.9 Chronic obstructive pulmonary disease, unspecified; I10 Essential (primary) hypertension; E78.00 Pure hypercholesterolemia, unspecified; M10.9 Gout, unspecified; M19.90 Unspecified osteoarthritis, unspecified site; F17.200 Nicotine dependence, unspecified, uncomplicated; R94.31 Abnormal electrocardiogram [ECG] [EKG]
CPT/HCPCS: 36415; 71046; 80053; 83690; 84484; 85025; 85610; 85730; 93005; 99284; A9270

== ENCOUNTER 2022-05-12 11:55 | Emergency (ER) | payer OTHER, SELFPAY ==
[2022-05-12 12:04] VITALS: BP 155/101; PULSE 73; RESP 16; TEMP 36.6; O2SAT 98
--- NOTE | 2022-05-12 12:12 | ED.URI ---
HPI - URI/Sore Throat General Chief Complaint: Upper Respiratory Infection Stated Complaint: uri Time Seen by Provider: 05/12/22 12:13 Source: patient, RN notes reviewed and old records reviewed Mode of arrival: ambulatory Limitations: no limitations History of Present Illness HPI Narrative: 61-year-old male presents to the [facility] with a upper respiratory infection . Had seen primary care provider and was prescribed allergy medication. States over last 3 days got worse. Denies any fevers. Patient is not a very good historian Related Data Home Medications Medication Instructions Recorded Confirmed allopurinol 100 mg tablet 100 mg PO DAILY 11/25/19 05/12/22 (Zyloprim) cetirizine 10 mg tablet (Zyrtec) 10 mg PO DAILY 11/25/19 05/12/22 hydrochlorothiazide 12.5 mg capsule 12.5 mg PO DAILY 11/25/19 05/12/22 losartan 50 mg tablet 50 mg PO DAILY 11/25/19 05/12/22 montelukast 10 mg tablet 10 mg PO DAILY 11/25/19 05/12/22 (Singulair) ergocalciferol (vitamin D2) 1,250 1.25 mcg PO WEEKLY 06/19/20 05/12/22 mcg (50,000 unit) capsule diclofenac sodium 75 mg 75 mg PO DAILY 03/28/21 05/12/22 tablet,delayed release fluticasone propionate 50 2 spray intranasal DAILY 05/12/22 05/12/22 mcg/actuation nasal spray,suspension Allergies Allergy/AdvReac Type Severity Reaction Status Date / Time No Known Allergies Allergy Verified 05/12/22 12:02 Review of Systems Review of Systems: All systems reviewed & are unremarkable except as noted in HPI and below Constitutional: Constitutional: Reports no additional constitutional complaints Eyes: Eyes: Reports no additional eye complaints ENT: Reports as per HPI Cardiovascular: Cardiovascular: Reports no additional cardiovascular complaints, Denies chest pain and Denies dyspnea Respiratory: Respiratory: Reports as per HPI, Denies chest congestion, Reports cough and Denies dyspnea Gastrointestinal: Gastrointestinal: Reports no additional gastrointestinal complaints, Denies abdominal pain, Denies nausea and Denies vomiting Musculoskeletal: Musculoskeletal: Reports no additional musculoskeletal complaints Integumentary/Breasts: Skin/Breast: Reports system reviewed and no additional complaints, except as docu Neurologic: Reports system reviewed and no additional complaints, except as documented Psychiatric: Psychiatric: Reports no additional psychiatric complaints Allergic/Immunologic: Allergic/Immunologic: Reports no additional allergic/immunologic complaints [facility] Past Medical History Medical History Arthritis COPD (chronic obstructive pulmonary disease) Gout High blood pressure High cholesterol Seasonal allergies Family History Family History Other Cerebrovascular accident Diabetes mellitus Family history of arthritis Family history of gout Family history of malignant neoplasm Hypertension Social History Social History Smoking status: Current every day smoker Alcohol intake: never Gender identity (if verbalized by the patient): Male Comments At the time of my signature, I reviewed and agree with the nursing past medical, surgical, social, and family history. There is no relevant family history pertinent to the patient complaint. Exam Const: General: cooperative, healthy appearing, comfortable, no acute distress, well developed, alert and well nourished Nutritional Appearance: well nourished Orientation/consciousness: patient oriented x3 Limitations: no limitations HENMT: Head: normal to inspection Ears: hearing grossly normal bilaterally and external ears normal Face/Nose/Sinus: Normal external nose present, Normal nares present, Normal nasal mucous membranes and turbinates present and normal facial exam Face and sinus: normal facial exam Mouth: Yes Normal oral and palata
== END 2022-05-12 12:32 | disposition home or self-care (01) ==
PROVIDERS: Emergency Provider Nurse Practitioner
DX: J40 Bronchitis, not specified as acute or chronic (principal); F17.200 Nicotine dependence, unspecified, uncomplicated; M19.90 Unspecified osteoarthritis, unspecified site; J44.9 Chronic obstructive pulmonary disease, unspecified; M10.9 Gout, unspecified; I10 Essential (primary) hypertension; E78.00 Pure hypercholesterolemia, unspecified
CPT/HCPCS: 99213; G0463

== ENCOUNTER 2022-12-23 15:18 | Emergency (ER) | payer OTHER, SELFPAY ==
[2022-12-23 15:28] VITALS: BP 130/90; PULSE 63; RESP 16; TEMP 36.7; O2SAT 100
--- NOTE | 2022-12-23 15:45 | ED.LOWEXIN ---
HPI - Extremity Injury (Lower) General Chief Complaint: Extremity Injury, Lower Stated Complaint: Left Leg Pain Time Seen by Provider: 12/23/22 15:36 Source: patient and RN notes reviewed Mode of arrival: ambulatory Limitations: no limitations History of Present Illness HPI Narrative: Patient presents today complaining of left posterior hip pain x3 days. States he strained his hip while moving a refrigerator. Pain radiates down the posterior thigh to the knee area. Denies numbness or tingling. Denies loss of bowel or bladder control. Denies back pain. He has tried some [id number] medication without relief. Currently rates his pain 01/21. States history of, ?pinched nerves? in his back in the past. Related Data Home Medications Medication Instructions Recorded Confirmed hydrochlorothiazide 12.5 mg capsule 12.5 mg PO DAILY 11/25/19 12/23/22 losartan 50 mg tablet 50 mg PO DAILY 11/25/19 12/23/22 pravastatin 40 mg tablet 40 mg PO DAILY 12/23/22 12/23/22 Allergies Allergy/AdvReac Type Severity Reaction Status Date / Time No Known Allergies Allergy Verified 12/23/22 15:19 Review of Systems Review of Systems: CONSTITUTIONAL: Denies body aches, fever, chills, or sweats. EYES: Denies visual changes, redness, or discharge. ENT: Denies rhinorrhea, congestion, sore throat, or otalgia. CARDIOVASCULAR: Denies chest pain, palpitations, or edema. RESPIRATORY: Denies cough or dyspnea. GASTROINTESTINAL: Denies abdominal pain, nausea, vomiting, or diarrhea. GENITOURINARY: Denies dysuria or hematuria. SKIN: Denies rash, itching, or wounds. MUSCULOSKELETAL: Denies back pain, or myalgia.+ left hip pain NEUROLOGIC: Denies headache, numbness, tingling, or weakness. PSYCH: Denies depression or anxiety. [facility] Past Medical History Medical History Arthritis COPD (chronic obstructive pulmonary disease) Gout High blood pressure High cholesterol Seasonal allergies Family History Family History Other Cerebrovascular accident Diabetes mellitus Family history of arthritis Family history of gout Family history of malignant neoplasm Hypertension Social History Social History Smoking status: Current every day smoker Alcohol intake: never Gender identity (if verbalized by the patient): Male Comments At time of signature, I have reviewed and agree with nursing past medical, surgical, social and family history unless otherwise noted. Please see nursing chart for further information. There is no relevant family history pertinent to the presenting complaint Exam Narrative: GENERAL: Well-appearing, well-nourished, and in moderate pain distress. HEAD: Normocephalic, atraumatic. EYES: EOMI. No redness or drainage. Conjunctivae normal. ENT: Mucous membranes pink and moist. NECK: Normal AROM. CHEST: No respiratory distress. MUSCULOSKELETAL: No bony tenderness of the spine. No paraspinal muscle tenderness of the thoracic or lumbar spine. Patient has tenderness of the left buttocks and SI joint that extends to the posterior thigh. Patient states that palpation of the left buttock causes reproducible pain down the leg. Distal sensation intact. Capillary refill normal. Color normal. Dorsiflexion and plantar flexion equal and strong against resistance. Patellar reflexes 2+ bilaterally. Saddle sensation intact. EXTREMITIES: Normal range of motion. No edema. SKIN: Warm, dry, no rash. Capillary refill normal. Normal skin turgor. NEURO: No focal deficits. Alert and oriented x3. Gait steady. PSYCH: Normal affect. No signs of depression or anxiety. Course Course Level of Care: Express Care Visit Vital Signs Vital signs: Vital Signs Temperature 98.1 F 12/23/22 15:28 Pulse Rate 63 12/23/22 15:28 Respiratory Ra
== END 2022-12-23 15:55 | disposition home or self-care (01) ==
PROVIDERS: Emergency Provider Nurse Practitioner
DX: M54.32 Sciatica, left side (principal); J44.9 Chronic obstructive pulmonary disease, unspecified; F17.200 Nicotine dependence, unspecified, uncomplicated; Z79.899 Other long term (current) drug therapy
CPT/HCPCS: 99213; G0463

== ENCOUNTER 2022-12-24 05:15 | Emergency (ER) | payer OTHER, SELFPAY ==
[2022-12-24 05:17] VITALS: BP 154/82; PULSE 79; RESP 16; TEMP 36.6; O2SAT 99
--- NOTE | 2022-12-24 06:20 | ED.GENADULT ---
HPI - General Adult General Chief complaint: Extremity Injury, Lower Stated complaint: L hip/thigh pain Time Seen by Provider: 12/24/22 06:05 History of Present Illness HPI narrative: Patient is a 62-year-old gentleman who presents the emergency department with chief complaint of the left leg pain patient states he was moving a refrigerator and felt as though he pulled a muscle in his leg patient reports that he was seen in urgent care started on ibuprofen and Flexeril and given a pulse of prednisone patient states that he has continued to have pain reports that the pain is worse with ambulation patient denies numbness or tingling denies bowel or bladder dysfunction denies foot drop. Related Data Home Medications Medication Instructions Recorded Confirmed hydrochlorothiazide 12.5 mg capsule 12.5 mg PO DAILY 11/25/19 12/23/22 losartan 50 mg tablet 50 mg PO DAILY 11/25/19 12/23/22 pravastatin 40 mg tablet 40 mg PO DAILY 12/23/22 12/23/22 Allergies Allergy/AdvReac Type Severity Reaction Status Date / Time No Known Allergies Allergy Verified 12/24/22 06:03 Review of Systems Review of Systems: A 10 system review of systems was completed on the patient and is negative except for what is stated in the HPI. Nursing and ancillary documentation was reviewed. [facility] Past Medical History Medical History Arthritis COPD (chronic obstructive pulmonary disease) Gout High blood pressure High cholesterol Seasonal allergies Family History Family History Other Cerebrovascular accident Diabetes mellitus Family history of arthritis Family history of gout Family history of malignant neoplasm Hypertension Social History Social History Smoking status: Current every day smoker Alcohol intake: never Gender identity (if verbalized by the patient): Male Exam Narrative: GENERAL: Well-appearing, well-nourished, and in no acute distress. HEAD: Normocephalic, atraumatic. EYES: PERRLA and EOMI. ENT: Nares clear, no rhinorrhea or epistaxis. Mucous membranes moist. NECK: Supple. CHEST: Clear to auscultation. No respiratory distress. HEART: Regular rate and rhythm. No murmur heard. Normal peripheral pulses. ABDOMEN: Soft, nontender, nondistended, normal active bowel sounds. EXTREMITIES: Normal range of motion. No edema. Tenderness to palpation in the left thigh on the anterior portion SKIN: Warm, dry, no rash. NEURO: No focal deficits. Alert and oriented x3. PSYCH: Normal mood and affect. Course Vital Signs Vital signs: Vital Signs Temperature 36.6 C 12/24/22 05:17 Pulse Rate 79 12/24/22 05:17 Respiratory Rate 16 12/24/22 05:17 Blood Pressure 154/82 H 12/24/22 05:17 Pulse Oximetry 99 12/24/22 05:17 Oxygen Delivery Room Air 12/24/22 05:17 Temperature 36.6 C 12/24/22 05:17 Pulse Rate 79 12/24/22 05:17 Respiratory Rate 16 12/24/22 05:17 Blood Pressure 154/82 H 12/24/22 05:17 Pulse Oximetry 99 12/24/22 05:17 Oxygen Delivery Room Air 12/24/22 05:17 Medical Decision Making [facility] Narrative Medical decision making narrative: Differential diagnosis includes muscle strain, Patient's pain was controlled in the emergency department patient be discharged home Vital Signs Vital Signs: Vital Signs Temperature 36.6 C 12/24/22 05:17 Pulse Rate 79 12/24/22 05:17 Respiratory Rate 16 12/24/22 05:17 Blood Pressure 154/82 H 12/24/22 05:17 Pulse Oximetry 99 12/24/22 05:17 Oxygen Delivery Room Air 12/24/22 05:17 Temperature 36.6 C 12/24/22 05:17 Pulse Rate 79 12/24/22 05:17 Respiratory Rate 16 12/24/22 05:17 Blood Pressure 154/82 H 12/24/22 05:17 Pulse Oximetry 99 12/24/22 05:17 Oxygen Delivery Room Air 12/24/22 05:17 Discharge Plan
[2022-12-24] MEDS: HYDROcodone/acetaminophen (*CRX) 5-325 MG TABLET 1 TAB PO (06:30)
[2022-12-24] MEDS: KETOROLAC 30 MG/ML VIAL (*BKC) IM (06:31)
== END 2022-12-24 07:25 | disposition home or self-care (01) ==
LOC: ANHED 07:06
PROVIDERS: Emergency Provider Emergency Medicine
DX: S76.912A Strain of unspecified muscles, fascia and tendons at thigh level, left thigh, initial encounter (principal); J44.9 Chronic obstructive pulmonary disease, unspecified; I10 Essential (primary) hypertension; E78.00 Pure hypercholesterolemia, unspecified; M10.9 Gout, unspecified; M19.90 Unspecified osteoarthritis, unspecified site; F17.201 Nicotine dependence, unspecified, in remission; X50.0XXA Overexertion from strenuous movement or load, initial encounter
CPT/HCPCS: 96372; 99284; A9270; J1100; J1885

== ENCOUNTER 2022-12-26 12:13 | Emergency (ER) | payer OTHER, SELFPAY ==
--- NOTE | 2022-12-26 13:01 | PC.NURSE ---
pt walked in, gave name and . saw waiting room, I am not staying ambulaate bacout the entry door
== END 2022-12-26 13:01 | disposition left against medical advice (07) ==
DX: Z53.21 Procedure and treatment not carried out due to patient leaving prior to being seen by health care provider (principal)
CPT/HCPCS: 99199

== ENCOUNTER 2022-12-26 13:06 | Emergency (ER) | payer OTHER, SELFPAY ==
--- NOTE | 2022-12-26 13:13 | ED.GENADULT ---
HPI - General Adult General Chief complaint: Extremity Injury, Lower Stated complaint: Left Leg Pain Time Seen by Provider: 12/26/22 13:57 Source: patient, RN notes reviewed and old records reviewed Mode of arrival: ambulatory Limitations: no limitations History of Present Illness HPI narrative: 62-year-old male returns to the [facility] for continued pain of the left upper leg. Patient reports he was diagnosed with a ?torn ligament. ? States that he needs pain medication. Patient states that he had just left the emergency room but can not stand the weight, ?I need more pain medicine. ? Reviewing medical record patient was evaluated in the [facility] on 12/23 as well as in the emergency room on 12/24. Patient was prescribed muscle relaxers, anti-inflammatories. Was also prescribed prednisone. States he does not have any medication left. According to medical record a supposed to still have nor flex at least 8 days worth. Patient was able to stand from a seated position without issue, pulled down his pants, no bruising or swelling noted. No tenderness to the hip, sciatic foramen area, posterior knee. Was able to palpate posterior thigh, anterior thigh, while distracted patient did not appear in discomfort. After distraction patient is complaining of significant 12/10 pain to the anterior and posterior thigh. patient reports he was helping a repeat friend move a refrigerator when he felt a pull in his thigh. Discussed doing an x-ray, discuss that an x-ray will show a fracture leg. Does not show ligament damage. Patient is structured on proper waited wear an Barney wrap by RN. Patient reports pain worse with walking Onset (ago): day(s) (5) Treatments prior to arrival: NSAID and other (muscle relaxers) Related Data Home Medications Medication Instructions Recorded Confirmed hydrochlorothiazide 12.5 mg capsule 12.5 mg PO DAILY 11/25/19 12/26/22 losartan 50 mg tablet 50 mg PO DAILY 11/25/19 12/26/22 pravastatin 40 mg tablet 40 mg PO DAILY 12/23/22 12/26/22 Allergies Allergy/AdvReac Type Severity Reaction Status Date / Time No Known Allergies Allergy Verified 12/26/22 14:11 Review of Systems Review of Systems: All systems reviewed & are unremarkable except as noted in HPI and below Constitutional: Constitutional: Reports no additional constitutional complaints Eyes: Eyes: Reports no additional eye complaints ENT: Reports system reviewed and no additional complaints, except as documented Cardiovascular: Cardiovascular: Reports no additional cardiovascular complaints, Denies chest pain and Denies dyspnea Respiratory: Respiratory: Reports no additional respiratory complaints, Denies chest congestion, Denies cough and Denies dyspnea Gastrointestinal: Gastrointestinal: Reports no additional gastrointestinal complaints, Denies abdominal pain, Denies nausea and Denies vomiting Musculoskeletal: Musculoskeletal: Reports as per HPI Integumentary/Breasts: Skin/Breast: Reports system reviewed and no additional complaints, except as docu Neurologic: Reports system reviewed and no additional complaints, except as documented Psychiatric: Psychiatric: Reports no additional psychiatric complaints Allergic/Immunologic: Allergic/Immunologic: Reports no additional allergic/immunologic complaints PMF[facility] Past Medical History Medical History Arthritis COPD (chronic obstructive pulmonary disease) Gout High blood pressure High cholesterol Seasonal allergies Family History Family History Other Cerebrovascular accident Diabetes mellitus Family history of arthritis Family history of gout Family history of malignant neoplasm Hypertension Social History Social History Smoking status: Current every day smoker Alcohol intake: never Gender identity (if verbalize
[2022-12-26 13:30] VITALS: BP 141/79; PULSE 73; RESP 18; TEMP 36.6; O2SAT 98
== END 2022-12-26 14:15 | disposition home or self-care (01) ==
PROVIDERS: Emergency Provider Nurse Practitioner
DX: S76.912A Strain of unspecified muscles, fascia and tendons at thigh level, left thigh, initial encounter (principal); X50.0XXA Overexertion from strenuous movement or load, initial encounter; M19.90 Unspecified osteoarthritis, unspecified site; J44.9 Chronic obstructive pulmonary disease, unspecified; M10.9 Gout, unspecified; I10 Essential (primary) hypertension; E78.00 Pure hypercholesterolemia, unspecified; F17.200 Nicotine dependence, unspecified, uncomplicated
CPT/HCPCS: 99212; G0463

== ENCOUNTER 2023-01-08 10:45 | Emergency (ER) | payer OTHER, SELFPAY ==
[2023-01-08 10:54] VITALS: BP 152/92; PULSE 80; RESP 16; TEMP 36.7; O2SAT 100
--- NOTE | 2023-01-08 10:56 | ED.LOWEXIN ---
HPI - Extremity Injury (Lower) General Chief Complaint: Extremity Injury, Lower Stated Complaint: left leg pain Time Seen by Provider: 01/08/23 10:56 Source: patient Mode of arrival: ambulatory Limitations: no limitations History of Present Illness HPI Narrative: 62 yo M presents with c/o L sided low back pain radiating to L leg for approx. 2 wks. Pt has been seen at several ERs and [email or web address] over the last 2 wks. has appt with his PCP tomorrow. Pt asking for pain shot . Was seen at ER two days ago and given flexeril. ER would not give pt anymore prednisone due to recently taking. Ambulatory with steady gait. No loss of bowel or bladder. Denies numbness/tingling, weakness to LEs. All systems reviewed and negative except as noted above. Related Data Home Medications Medication Instructions Recorded Confirmed hydrochlorothiazide 12.5 mg capsule 12.5 mg PO DAILY 11/25/19 01/08/23 losartan 50 mg tablet 50 mg PO DAILY 11/25/19 01/08/23 pravastatin 40 mg tablet 40 mg PO DAILY 12/23/22 01/08/23 Allergies Allergy/AdvReac Type Severity Reaction Status Date / Time No Known Allergies Allergy Verified 01/08/23 10:59 Review of Systems Review of Systems: CONSTITUTIONAL: Denies fever, chills, or sweats. EYES: Denies visual changes, redness, or discharge. ENT: Denies rhinorrhea, congestion, sore throat, or otalgia. CARDIOVASCULAR: Denies chest pain, palpitations, or edema. RESPIRATORY: Denies cough or dyspnea. GASTROINTESTINAL: Denies abdominal pain, nausea, vomiting, or diarrhea. GENITOURINARY: Denies dysuria or hematuria. SKIN: Denies rash or itching. MUSCULOSKELETAL: Reports left-sided low back pain with radiation to left thigh. NEUROLOGIC: Denies headache, numbness, or weakness. PSYCHIATRIC: Denies anxiety or depression. All other systems reviewed are negative, except as documented in HPI. [facility] Past Medical History Medical History Arthritis COPD (chronic obstructive pulmonary disease) Gout High blood pressure High cholesterol Seasonal allergies Family History Family History Other Cerebrovascular accident Diabetes mellitus Family history of arthritis Family history of gout Family history of malignant neoplasm Hypertension Social History Social History Smoking status: Current every day smoker Alcohol intake: never Gender identity (if verbalized by the patient): Male Comments At time of signature, agree with nursing past medical, surgical, social and family history. There is no relevant family history pertinent to the presenting complaint. Exam Narrative: GENERAL: This is a well-nourished, well-developed patient, in no apparent distress. HEAD: normocephalic, atraumatic. EYES: PERRL. Sclera clear/white. Vision is grossly intact. EARS: External ears normal NOSE: External nose normal NECK: Neck supple, non-tender without lymphadenopathy, masses or thyromegaly. CARDIOVASCULAR: Regular rate and rhythm without murmurs, gallops, or rubs. RESPIRATORY: Clear to auscultation. Breath sounds equal bilaterally. No wheezes, rales, or rhonchi. SKIN: warm, Dry, intact with no suspicious lesions or rash, good texture and turgor. NEURO: awake, alert, and oriented to person, place and time. There were no obvious focal neurologic abnormalities. EXTREMITIES: No joint tenderness, effusion, or edema noted. BACK: no midline tenderness. tenderness to L SI joint. lower extremity strength 4/5 bilaterally. Positive L straight leg raise. Course Course Level of Care: Express Care Visit Vital Signs Vital signs: Vital Signs Temperature 36.7 C 01/08/23 10:54 Pulse Rate 80 01/08/23 10:54 Respiratory Rate 16 01/08/23 10:54 Blood Pressure 152/92 H 01/08/23 10:54 Pulse Oximetry 100 01/08/23 10:54 Temperature 36.7 C 01/08/23
[2023-01-08] MEDS: KETOROLAC 30 MG/ML VIAL (*BKC) IM (11:13)
== END 2023-01-08 11:49 | disposition home or self-care (01) ==
PROVIDERS: Emergency Provider Nurse Practitioner Family
DX: M54.42 Lumbago with sciatica, left side (principal); J44.9 Chronic obstructive pulmonary disease, unspecified; F17.200 Nicotine dependence, unspecified, uncomplicated; Z79.899 Other long term (current) drug therapy
CPT/HCPCS: 96372; 99213; G0463; J1885

== ENCOUNTER 2023-02-22 09:30 | Outpatient (RCR) | payer OTHER, SELFPAY ==
--- NOTE | 2023-01-11 12:12 | PTOPEVAL1 ---
Assessment and note entered by Leonel Su Evaluation Information Assessment Status Evaluation Diagnosis lumbar radiculopathy, L3-L5 DDD Onset 12/21/22 Subjective Information Pt. reports that he bent forward to leaf size picker a piece of paper and noticed increased pain in the low back. He reports that his pain has worsened since the incident. He reports that he has undergone xray. He describes pain in the area of the left buttock, left thigh and into the hamstring. He reports that pain is increased with prolonged sitting and standing. He reports that he uses ice to reduce his pain. he has taken mm relaxors previous to developing low back pain. He reports no hx of back surgery. He states that he can only stand for about 1 minute, making simple tasks such as going to the bathroom difficult. He reports that his goal is to reduce his left leg and buttock pain. Reported Pain Level Pain Score 10: Self Report Assessment PT Clinical Summary Pt. is a 62 year old male who enters the clinic with low back pain and left l.e. radiculopathy. He presents with impaired gait, functional decline , impaired trunk mobility, impaired l.e. flexibility, pain and l.e. weakness on this date. Continued skilled PT is indicated in order to improve these areas to allow for improved comfort and efficiency with all IADL's. Plan of Care Interventions Electrical Stimulation,Gait Training,Hot Pack/Cold Pack,Manual Therapy,Mechanical Traction,Neuro Re- education,Patient/Caregiver Educati,Therapeutic Activities,Therapeutic Exercise PT Services Indicated Yes Treatment Frequency and 2x/week x 10 visits Duration These treatments will address the objective and functional deficits as defined above. The patient will be advanced safely and appropriately in order for the patient to progress towards his/her prior level of function. Additional exercises will be introduced and as well as a comprehensive home exercise program upon discharge, if needed, ?to ensure carryover of functional gains achieved in the clinic. This treatment plan has been reviewed and agreement upon by the patient.
--- NOTE | 2023-01-11 12:13 | OPREHPOC ---
Outpatient Therapy Plan of Care This is a Multidisciplinary Plan of Care that may contain components documented by all disciplines (PT, OT, and ST.) PT Problem 1 PT Problem #1 Knowledge Deficit PT Goal 1 Goal Pt. will be independent with a HEP focusing on trunk mobility and core strength Target Visit 2 PT Problem 2 PT Problem #2 Impaired Gait PT Goal 1 Goal pt. will demonstrate the ability to walk for 6 minutes consecutive over a distance of 600' with pain levels at 6/10 at worst Target Visit 10 PT Problem 3 PT Problem #3 Impaired Functional Mobil PT Goal 1 Goal Pt. will present with 60% limitaiton or less with the Oswestry indicating improved functional mobility. Target Visit 10 PT Problem 4 PT Problem #4 Impaired Strength PT Goal 1 Goal Pt. will present with 4+/5 gross proximal left l.e . strength Target Visit 10 PT Problem 5 PT Problem #5 Impaired Range of Motion PT Goal 1 Goal Pt. will demonstrate the ability to reach to the floor to lift small objects without pain and demonstrating safe body mechanics. Target Visit 10
--- NOTE | 2023-01-18 14:35 | PCPTNOTE ---
Pt no showed 2pm appt called pt and he was able to make a 3:30pm appt with another therapist.
--- NOTE | 2023-02-22 11:45 | PTOPDC ---
Assessment and note entered by Leonel Su Evaluation Information Assessment Status Discharge Diagnosis lumbar radiculopathy, L3-L5 DDD Onset 12/21/22 Subjective Information Pt. reports that he continues to have fluctuating pain. He reports that he has been sleeping better at night since starting therapy. He reports that prior to beginning therapy he would wake 8 times a night, but is only waking one time a night currently. He reports that he is still using pain medication at the same frequency. He states that he cannot walk longer than 10 minutes without increased back pain. He states that he has been trying wound care coordinator, but is uncertain of progress. He states that he will continue with his HEP and is ready for discharge at this time. Reported Pain Level Pain Score 7: Self Report Assessment PT Clinical Summary Despite subjective reports, pt. presents with significant objective improvements and significant improvement in his Oswestry score. He currently has a comprehensive HEP focused on stability and flexibility. Continue to question pt. compliance with exercise and he requires frequent cuing with techniques. At this time encourage pt. to continue exercise as instructed. Plan of Care PT Services Indicated D/C from PT to an independent HEP
== END 2023-02-22 12:32 | disposition home or self-care (01) ==
LOC: ANHPT 09:30
PROVIDERS: PCP Physician Assistant; Visit Provider Physician Assistant
DX: M54.16 Radiculopathy, lumbar region (principal)
CPT/HCPCS: 97014; 97110; 97116; 97140; 97161; 97530; 99199; G0283

== ENCOUNTER 2023-05-11 10:31 | Emergency (ER) | payer OTHER, SELFPAY ==
--- NOTE | 2023-05-11 10:32 | ED.URI ---
HPI - URI/Sore Throat General Chief Complaint: Upper Respiratory Infection Stated Complaint: Sinus Time Seen by Provider: 05/11/23 10:54 Source: patient and RN notes reviewed Mode of arrival: ambulatory Limitations: no limitations History of Present Illness HPI Narrative: 62-year-old male presents with concern of for dry hacking cough nasal congestion. Reports he had a nose bleed today for the 1st time. Reports he is taking a cold relief. He denies fever. He reports he has not taken his ?water pill? and otherwise blood pressure is high. He has plenty of the medication at home. MD elicited complaint: cough Related Data Home Medications Medication Instructions Recorded Confirmed hydrochlorothiazide 12.5 mg capsule 12.5 mg PO DAILY 11/25/19 05/11/23 losartan 50 mg tablet 50 mg PO DAILY 11/25/19 05/11/23 pravastatin 40 mg tablet 40 mg PO DAILY 12/23/22 05/11/23 allopurinol 100 mg tablet 100 mg PO DAILY 05/11/23 05/11/23 cetirizine 10 mg tablet 10 mg PO DAILY 05/11/23 05/11/23 ergocalciferol (vitamin D2) 1,250 1,250 mcg PO WEEKLY 05/11/23 05/11/23 mcg (50,000 unit) capsule gabapentin 300 mg capsule 300 mg PO TID 05/11/23 05/11/23 montelukast 10 mg tablet 10 mg PO DAILY 05/11/23 05/11/23 Allergies Allergy/AdvReac Type Severity Reaction Status Date / Time No Known Allergies Allergy Verified 05/11/23 10:33 Review of Systems Review of Systems: CONSTITUTIONAL: Denies malaise, chills, sweats, or fever. EYES: Denies visual changes, redness, or discharge. ENT: Reports rhinorrhea, congestion CARDIOVASCULAR: Denies chest pain, palpitations, or edema. RESPIRATORY: Reports cough. Denies dyspnea. GASTROINTESTINAL: Denies abdominal pain, nausea, vomiting, diarrhea SKIN: Denies rash or itching. MUSCULOSKELETAL: Denies myalgia. NEUROLOGIC: Denies headache. All systems reviewed & are unremarkable except as noted in HPI and below PMFSH Past Medical History Medical History Arthritis COPD (chronic obstructive pulmonary disease) Gout High blood pressure High cholesterol Seasonal allergies Family History Family History Other Cerebrovascular accident Diabetes mellitus Family history of arthritis Family history of gout Family history of malignant neoplasm Hypertension Social History Social History Smoking status: Current every day smoker Alcohol intake: never Gender identity (if verbalized by the patient): Male Comments At time of signature, agree with nursing past medical, surgical, social and family history. There is no relevant family history pertinent to the presenting complaint Exam Narrative: GENERAL: Well-appearing, well-nourished, and in no acute distress. HEAD: Normocephalic EYES: PERRLA, conjunctivae clear ENT: Nares clear, no epistaxis noted. Mucous membranes moist. TM pearly perez with dull light reflex bilaterally; no tragal tenderness. Oropharynx not erythematous without lesions. Tonsils not enlarged and without exudate, no drooling, no hoarseness, no trismus, uvula midline. NECK: Supple. No lymphadenopathy CHEST: Clear to auscultation, breath sounds equal. No wheezing, rhonchi, rales, or stridor. No respiratory distress, speaks in full sentences. HEART: Regular rate and rhythm. No murmur heard. SKIN: Warm, dry, no rash. NEURO: Alert and oriented x3. PSYCH: Normal mood and affect Course Course Emergency Course: Patient is aware of diagnosis, understands and agrees to treatment plan. Anticipatory guidance given. Patient agrees to follow-up as directed and is aware of reasons to seek care at the emergency department. Portions of this record may have been created with voice recognition software Level of Care: Express Care Visit Vital Signs Vital signs: Reviewed. MDM - URI/Sore Throat MDM Narrative Medical decision
[2023-05-11 10:41] VITALS: BP 171/101; PULSE 72; RESP 18; TEMP 36.2; O2SAT 100
[2023-05-11 11:07] VITALS: BP 150/88
== END 2023-05-11 11:07 | disposition home or self-care (01) ==
PROVIDERS: Emergency Provider Nurse Practitioner; PCP Physician Assistant
DX: J06.9 Acute upper respiratory infection, unspecified (principal); F17.200 Nicotine dependence, unspecified, uncomplicated; M19.90 Unspecified osteoarthritis, unspecified site; J44.9 Chronic obstructive pulmonary disease, unspecified; M10.9 Gout, unspecified; I10 Essential (primary) hypertension; E78.00 Pure hypercholesterolemia, unspecified
CPT/HCPCS: 99213; G0463

== ENCOUNTER 2023-10-26 13:45 | Outpatient (CLI) | payer OTHER, SELFPAY ==
--- NOTE | ~2023-10-26 | XR_ITS ---
EXAMINATION: XR shoulder RT min 2V DATE: 10/26/2023 14:03 INDICATION: Right shoulder pain TECHNIQUE: AP internally and externally rotated, AP oblique externally rotated and transscapular Y vi ews of the right shoulder were obtained. COMPARISON: None FINDINGS: Normal alignment. No fracture. Glenohumeral joint is normal. Moderate acromioclavicular osteoarthrit is. Soft tissues are unremarkable. Visualized portion of the lungs are clear. IMPRESSION: Moderate right acromioclavicular osteoarthritis. Reviewed, dictated and finalized at location B.
== END 2023-10-26 13:46 | disposition home or self-care (01) ==
PROVIDERS: PCP Physician Assistant; Visit Provider Physician Assistant
DX: M19.011 Primary osteoarthritis, right shoulder (principal)
CPT/HCPCS: 73030

== ENCOUNTER 2024-02-05 11:15 | Outpatient (RCR) | payer OTHER, SELFPAY ==
[2024-02-05 11:20] VITALS: BP_SYST 110
--- NOTE | 2024-02-05 12:01 | OPREHPOC ---
Outpatient Therapy Plan of Care This is a Multidisciplinary Plan of Care that may contain components documented by all disciplines (PT, OT, and ST.) PT Problem 1 PT Problem #1 Knowledge Deficit PT Goal 1 Goal / Goal Update *indep with HEP Target Visit 6 PT Problem 2 PT Problem #2 Pain PT Goal 1 Goal / Goal Update * pt report pain rating at worst of 65% limitation Target Visit 6 PT Goal 2 Goal / Goal Update *pt report with sleeping, is able to get R shoulder comfortable Target Visit 6 PT Problem 3 PT Problem #3 Impaired Strength PT Goal 1 Goal / Goal Update improve strength of R shoulder, to increase use of R arm with home tasks: pt perform in standing, 5 reps: 1* flexion to 95' 2* abduction to 90' 3* IR- reach behind back, palm to waist 4* ER- reach to back of head, palm to back head Target Visit 6
--- NOTE | 2024-02-05 12:02 | PCPTNOTE ---
pt was 20 minutes late for initial evaluation appt.
--- NOTE | 2024-02-05 12:03 | PTOPEVAL1 ---
Assessment and note entered by Courtney Mcclain, PT Evaluation Information Assessment Status Evaluation ICD-10 Condition Codes (PT) Pain in right elbow M25.521,Weakness R53.1 Other ICD-10 Condition Codes ( arthritis of R shoulder M19.001 PT) Onset June 2023 Subjective Information gradual increase in shoulder pain, without injury or trauma to shoulder; R hand dominant; x ray- per pt: arthritis of shoulder; want to try to avoid surgery on his shoulder; activity: hauling scrap metal; Reported Pain Level Pain Score 4: Self Report Additional Pain Score Comments pain range in the past week: 2-9/10;whole shoulder hurts; no pain radiating into R UE increase pain: using arm, move any way; sleeping is hard, cannot get R shoulder comfortable decrease pain: taking 4 or 5 medicines- not know what they are Assessment PT Clinical Summary Jesus has the diagnosis of R shoulder pain. He reports chronic issues with neck and back pain. Self assessment Quick DASH rating of 84% limitation in activity level. He is R hand dominant. Decreased sleeping and home activity due to pain. With the evaluation, he has pain with all R shoulder motions, with decreased ROM and strength. Skilled PT services are indicated for modalities to decrease pain, therapeutic exercises to increase ROM and strength with education for HEP and pain control. Plan of Care Interventions Electrical Stimulation,Hot Pack/Cold Pack,Manual Therapy,Neuro Re-education,Patient/Caregiver Education,Therapeutic Activities,Therapeutic Exercise,Ultrasound,Other Other Interventions taping PT Services Indicated Yes Treatment Frequency and 1-2x/wk for 6 visits Duration These treatments will address the objective and functional deficits as defined above. The patient will be advanced safely and appropriately in order for the patient to progress towards his/her prior level of function. Additional exercises will be introduced and as well as a comprehensive home exercise program upon discharge, if needed, ?to ensure carryover of functional gains achieved in the clinic. This treatment plan has been reviewed and agreement upon by the patient.
--- NOTE | 2024-02-11 09:41 | PCPTNOTE ---
Patient called to cancel due to going out of town.
--- NOTE | 2024-02-29 11:01 | PCPTNOTE ---
Left mssg with pt to see if he still needs our services and if he plans on attending next visit re-eval 03-06-24 .If not asked him to call and cx. AKS
--- NOTE | 2024-03-06 10:30 | PCPTNOTE ---
pt did not show for today's scheduled reevaluation appt. Called and left voice message--if he does not call/make appt in 3 days, he will be discharged from PT.
--- NOTE | 2024-04-04 11:47 | PTOPDC ---
Assessment and note entered by Courtney Mcclain, PT Assessment Status Discharge - Pt Not Present ICD-10 Condition Codes (PT) Pain in right elbow M25.521,Weakness R53.1 Other ICD-10 Condition Codes ( arthritis of R shoulder M19.001 PT) Onset June 2023 Subjective Information pt was not seen this date. Assessment PT Clinical Summary Jesus has received the PT evaluation in January. He then called/canceled 3 and did not show for 1 appointment. Discharge PT. The goals were not addressed. Plan of Care PT Services Indicated No
== END 2024-04-04 16:21 | disposition home or self-care (01) ==
LOC: ANHPT 11:15
PROVIDERS: PCP Physician Assistant; Visit Provider Physician Assistant
DX: M19.011 Primary osteoarthritis, right shoulder (principal)
CPT/HCPCS: 97110; 97161

== ENCOUNTER 2024-05-14 18:19 | Emergency (ER) | payer OTHER, SELFPAY ==
[2024-05-14 18:27] VITALS: BP 139/85; PULSE 75; RESP 18; TEMP 36.7; O2SAT 98
--- NOTE | 2024-05-14 18:45 | ED_ITS ---
HPI - Dental/Oral General Chief complaint: Dental/Oral Stated complaint: Dental Pain Source: patient and RN notes reviewed Mode of arrival: ambulatory Limitations: no limitations History of Present Illness HPI Narrative: 63 year male presents to the [facility] complaining of dental pain. He says he has ongoing dental issues per reports this dental pain has been going on for the last 2 months. The pain is in the right lower part of his jaw he reports some swelling to the right side of his face. He denies any swelling under his tongue, denies any discharge, or difficulty breathing. He has had a history of teeth being pulled in the past for dental caries. He has not follow-up for dentist for this problem. He has been using [id number] Tylenol as needed for pain with some relief. Related Data Home Medications ?Medication ?Instructions ?Recorded ?Confirmed ?Last Taken ?Type hydrochlorothiazide 12.5 mg capsule 12.5 mg PO DAILY 11/25/19 05/11/23 Unknown History losartan 50 mg tablet 50 mg PO DAILY 11/25/19 05/11/23 Unknown History pravastatin 40 mg tablet 40 mg PO DAILY 12/23/22 05/11/23 Unknown History allopurinol 100 mg tablet 100 mg PO DAILY 05/11/23 05/11/23 Unknown History ergocalciferol (vitamin D2) 1,250 1,250 mcg PO WEEKLY 05/11/23 05/11/23 Unknown History mcg (50,000 unit) capsule gabapentin 300 mg capsule 300 mg PO TID 05/11/23 05/11/23 Unknown History montelukast 10 mg tablet 10 mg PO DAILY 05/11/23 05/11/23 Unknown History Allergies Allergy/AdvReac Type Severity Reaction Status Date / Time No Known Allergies Allergy Verified 05/14/24 18:20 Review of Systems Review of Systems: CONSTITUTIONAL: Denies fever, chills, or sweats. EYES: Denies visual changes, redness, or discharge. ENT: Denies rhinorrhea, congestion, sore throat, or otalgia. MOUTH: Positive for dental pain, right lower facial swelling. Negative for swelling under the tongue CARDIOVASCULAR: Denies chest pain, palpitations, or edema. RESPIRATORY: Denies cough or dyspnea. GASTROINTESTINAL: Denies abdominal pain, nausea, vomiting, or diarrhea. GENITOURINARY: Denies dysuria or hematuria. SKIN: Denies rash or itching. MUSCULOSKELETAL: Denies back pain, joint pain, or myalgia. NEUROLOGIC: Denies headache, numbness, or weakness. PSYCHIATRIC: Denies anxiety or depression. All other systems reviewed are negative, except as documented in HPI. [facility] Past Medical History Medical History Arthritis COPD (chronic obstructive pulmonary disease) Seasonal allergies High cholesterol High blood pressure Gout Family History Family History Other Cerebrovascular accident Diabetes mellitus Family history of arthritis Family history of gout Family history of malignant neoplasm Hypertension Social History Social History Smoking status: Current every day smoker Alcohol intake: never Gender identity (if verbalized by the patient): Male Comments At the time of my signature, I reviewed and agree with the nursing past medical, surgical, social, and family history. There is no relevant family history pertinent to the patient complaint. Exam Narrative: GENERAL: This is a well-nourished, well-developed adult, in no apparent distress. They are non ill-appearing, nontoxic appearing. HEAD: normocephalic, atraumatic. EYES: Sclera clear/white. Vision is grossly intact. EARS: External ears normal. Hearing grossly intact. NOSE: External nose normal with no obvious nasal discharge, nares without redness, no rhinorrhea. THROAT: Mucous membranes moist, posterior pharynx clear. Uvula midline, tongue is coated MOUTH: Patient has missing teeth. Patient has poor dentition. Gross dental decay present. Tooth 29 with a crack in it, it is brown and black. There is no swelling inside the mouth, and no induration or area of fluctuance. There is no swelling under the tongue, no sublingual tenderness. No trismus. Mild swelling to the right lower jawline. NECK: Neck supple, non-tender without lymphadenopathy, masses or thyromegaly. CARDIOVASCULAR: Regular rate and rhythm RESPIRATORY: Airway is patent, normal respiratory rate and depth. No respiratory distress SKIN: warm, Dry, intact with no suspicious lesions or rash, good texture and turgor. NEURO: awake, alert, and oriented to person, place and time. There were no obvious focal neurologic abnormalities. EXTREMITIES: No edema Course Course Level of Care: Express Care Visit Vital Signs Vital signs: Vital Signs Temperature 98.1 F 05/14/24 18:27 Pulse Rate 75 05/14/24 18:27 Respiratory Rate 18 05/14/24 18:27 Blood Pressure 139/85 05/14/24 18:27 Pulse Oximetry 98 05/14/24 18:27 Oxygen Delivery Room Air 05/14/24 18:27 Temperature 98.1 F 05/14/24 18:27 Pulse Rate 75 05/14/24 18:27 Respiratory Rate 18 05/14/24 18:27 Blood Pressure 139/85 05/14/24 18:27 Pulse Oximetry 98 05/14/24 18:27 Oxygen Delivery Room Air 05/14/24 18:27 Reviewed MDM - Dental/Oral MDM Narrative Medical decision making narrative: Patient has poor dentition. Patient has gross tooth decay. It was advised that he go and follow up with a dentist for further evaluation of his dental problems. Patient has mild swelling to the right lower part of his jaw. There is no evidence of an abscess formation inside his mouth. Will treat for infection with amoxicillin. Anticipatory guidance given, strict ED return precautions discussed. Patient was given a list of dentists and oral hygiene was discussed. Differential Diagnosis Differential diagnosis: Likely gingival abscess, dental caries, dental abscess and other (Anton's angina) Critical Care Time Critical Care Time Critical Care Time: No Discharge Plan Discharge Clinical Impression: Dentalgia Patient Disposition: Home, Self-Care Condition: Stable Instructions: Antibiotic Form, Dental Abscess (ED) Additional Instructions: Take antibiotic until it's gone. Brushing teeth at least twice daily with gentle flossing. Avoid temperature extremes---when you eat. Salt gargle to rinse your mouth after every meal You may apply ice to the face to reduce pain/swelling. For pain, you may take: Tylenol 650-1000mg by mouth every 4-6 hours. Do not exceed 4000mg in 24 hours. Advil (Ibuprofen) 600 mg by mouth every 6 hours. Do not exceed 2400mg in 24 hours. Please follow-up with a dentist this issue will not go away without an evaluation from the dentist Also, recommend regular dental check up one-two times a year to prevent tooth de rupert and other periodontal disease. Follow-up with the dentist as soon as possible--see the list provided If you develop difficulty breathing, worsening mouth swelling especially under your tongue, or symptoms get worse or you have any other concerns please go to the emergency department. Patient Language: Faroese Prescriptions: New amoxicillin 875 mg tablet 875 mg PO Q12H 10 Days Qty: 20 0RF No Action allopurinol 100 mg tablet 100 mg PO DAILY gabapentin 300 mg capsule 300 mg PO TID montelukast 10 mg tablet 10 mg PO DAILY ergocalciferol (vitamin D2) 1,250 mcg (50,000 unit) capsule 1,250 mcg PO WEEKLY losartan 50 mg Tablet 50 mg PO DAILY hydrochlorothiazide 12.5 mg Capsule 12.5 mg PO DAILY pravastatin 40 mg tablet 40 mg PO DAILY orphenadrine citrate 100 mg tablet extended release 100 mg PO Q12H PRN (Reason: spasms) Qty: 20 0RF Follow-up/Referrals: Gayle Galdamez APRN [Primary Care Provider] - Time of Disposition: 18:48
== END 2024-05-14 18:55 | disposition home or self-care (01) ==
PROVIDERS: PCP Nurse Practitioner Family
DX: K08.89 Other specified disorders of teeth and supporting structures (principal); F17.200 Nicotine dependence, unspecified, uncomplicated; J44.9 Chronic obstructive pulmonary disease, unspecified; I10 Essential (primary) hypertension; E78.00 Pure hypercholesterolemia, unspecified; M19.90 Unspecified osteoarthritis, unspecified site; M10.9 Gout, unspecified
CPT/HCPCS: 99213; G0463

== ENCOUNTER 2024-05-23 14:32 | Emergency (ER) | payer OTHER, SELFPAY ==
[2024-05-23 14:36] VITALS: BP 161/87; PULSE 67; RESP 19; TEMP 35.9; O2SAT 100
--- NOTE | 2024-05-23 14:47 | ED_ITS ---
HPI - Dental/Oral General Chief complaint: Dental/Oral Stated complaint: Dental Pain Time Seen by Provider: 05/23/24 15:01 Source: patient Mode of arrival: ambulatory Limitations: no limitations History of Present Illness HPI Narrative: 63-year-old male presents with concern for right lower dental pain. He was seen here 9 days ago and was prescribed amoxicillin which she has taken all but 1 tablet and reports that symptoms are worse. Reports jaw swelling has worsened, pain is worse. Reports he has been working with a dentist to get an appointment MD Complaint: tooth pain Related Data Home Medications ?Medication ?Instructions ?Recorded ?Confirmed ?Last Taken ?Type hydrochlorothiazide 12.5 mg capsule 12.5 mg PO DAILY 11/25/19 05/11/23 Unknown History losartan 50 mg tablet 50 mg PO DAILY 11/25/19 05/11/23 Unknown History pravastatin 40 mg tablet 40 mg PO DAILY 12/23/22 05/11/23 Unknown History allopurinol 100 mg tablet 100 mg PO DAILY 05/11/23 05/11/23 Unknown History ergocalciferol (vitamin D2) 1,250 1,250 mcg PO WEEKLY 05/11/23 05/11/23 Unknown History mcg (50,000 unit) capsule gabapentin 300 mg capsule 300 mg PO TID 05/11/23 05/11/23 Unknown History montelukast 10 mg tablet 10 mg PO DAILY 05/11/23 05/11/23 Unknown History Allergies Allergy/AdvReac Type Severity Reaction Status Date / Time No Known Allergies Allergy Verified 05/23/24 14:41 Review of Systems Review of Systems: CONSTITUTIONAL: Denies malaise, chills, sweats, or fever. EYES: Denies visual changes ENT: Denies rhinorrhea, congestion, sinus pain, otalgia or sore throat. Reports right lower dental pain and jaw swelling CARDIOVASCULAR: Denies chest pain, palpitations RESPIRATORY: Denies cough or dyspnea. SKIN: Denies rash or itching. MUSCULOSKELETAL: Denies myalgia. NEUROLOGIC: Denies numbness, weakness, or headache. All systems reviewed & are unremarkable except as noted in HPI and below PMFSH Past Medical History Medical History Arthritis COPD (chronic obstructive pulmonary disease) Seasonal allergies High cholesterol High blood pressure Gout Family History Family History Other Cerebrovascular accident Diabetes mellitus Family history of arthritis Family history of gout Family history of malignant neoplasm Hypertension Social History Social History Smoking status: Current every day smoker Alcohol intake: never Gender identity (if verbalized by the patient): Male Comments At time of signature, agree with nursing past medical, surgical, social and family history. There is no relevant family history pertinent to the presenting complaint Exam Narrative: GENERAL: Well-appearing, well-nourished, and in no acute distress. HEAD: Normocephalic, atraumatic. EYES: PERRLA, sclera clear ENT: Nares clear, turbinates pink, no rhinorrhea or epistaxis. Mucous membranes moist. TM pearly perez with sharp light reflex bilaterally; no tragal tenderness. Oropharynx without erythema or lesions. Tonsils not enlarged and without exudate. Missing teeth, broken teeth, caries, abscess noted near tooth number 30 NECK: Supple. No lymphadenopathy. CHEST: No respiratory distress. Speaks in full sentences. HEART: Regular rate and rhythm. SKIN: Warm, dry, no visible rash. NEURO: Alert and oriented x3. PSYCH: Normal mood and affect Course Course Emergency Course: Patient is aware of diagnosis, understands and agrees to treatment plan. Anticipatory guidance given. Patient agrees to follow-up as directed and is miles re of reasons to seek care at the emergency department. Portions of this record may have been created with voice recognition software Level of Care: Express Care Visit Vital Signs Vital signs: Vital Signs Temperature 96.6 F L 05/23/24 14:36 Pulse Rate 05/23/24 14:36 Respiratory Rate 05/23/24 14:36 Blood Pressure 161/87 H 05/23/24 14:36 Pulse Oximetry 100 05/23/24 14:36 Oxygen Delivery Room Air 05/23/24 14:36 Temperature 96.6 F L 05/23/24 14:36 Pulse Rate 67 05/23/24 14:36 Respiratory Rate 05/23/24 14:36 Blood Pressure 161/87 H 05/23/24 14:36 Pulse Oximetry 100 05/23/24 14:36 Oxygen Delivery Room Air 05/23/24 14:36 Reviewed. MDM - Dental/Oral MDM Narrative Medical decision making narrative: I evaluated this in the [facility] care. History is obtained from patient who is an independent historian and physical exam was performed.? Available medical records were reviewed. ? Exam findings and relevant testing show no acute concerns or changes; patient is non-toxic appearing and is in no distress. Patients pain and complaint coupled with physical findings are consistant with dentalgia. There are no focal signs of space occupying lesions that are compromising to the airway; no dysphagia, odynophagia, dysphonia, or dyspnea. No uvular deviation or soft palate edema. Patient is non-toxic appearing. The floor of the mouth is soft with no signs of Anton's Angina; no induration below mandible, no neck pain. Patient is without trismus or drooling and able to swallow secretions. Patient is felt appropriate for discharge home with dental follow up. ? Differential diagnosis and treatment plan were discussed with the patient. Patient agrees with discussion and after shared medical decision making agrees with plan of care. All questions were answered to the patient's satisfaction. Patient is appropriate for outpatient treatment and follow-up. Differential Diagnosis Differential diagnosis: Likely gingival abscess, dental caries, toothache, dental abscess, fracture of tooth and aphthous ulcer Critical Care Time Critical Care Time Critical Care Time: No Discharge Plan Discharge Clinical Impression: Dental abscess Patient Disposition: Home Condition: Stable Instructions: Antibiotic Form, Dental Abscess (ED) Additional Instructions: Take antibiotic as directed Avoid temperature extremes May apply heat or ice to the face Gentle brushing and flossing Take 2 extra strength Tylenol, 4 ibuprofen, 80 mg of caffeine at same time. You can do this every 6 hours. Do not do this for more than 2 - 3 days. You can substitute 25 mg Benadryl at nighttime for caffeine to help you sleep. Do this for no more than 3 days. Follow-up with the dentist as soon as possible - see the list provided Patient Language: [place] Prescriptions: New clindamycin HCl 300 mg capsule 300 mg PO Q8H 7 Days Qty: 21 0RF ibuprofen 800 mg tablet 800 mg PO Q6H PRN (Reason: pain) Qty: 30 0RF No Action allopurinol 100 mg tablet 100 mg PO DAILY gabapentin 300 mg capsule 300 mg PO TID montelukast 10 mg tablet 10 mg PO DAILY ergocalciferol (vitamin D2) 1,250 mcg (50,000 unit) capsule 1,250 mcg PO WEEKLY amoxicillin 875 mg tablet 875 mg PO Q12H 10 Days Qty: 20 0RF losartan 50 mg Tablet 50 mg PO DAILY hydrochlorothiazide 12.5 mg Capsule 12.5 mg PO DAILY pravastatin 40 mg tablet 40 mg PO DAILY orphenadrine citrate 100 mg tablet extended release 100 mg PO Q12H PRN (Reason: spasms) Qty: 20 0RF Follow-up/Referrals: Gayle Galdamez APRN [Primary Care Provider] - Time of Disposition: 15:07
== END 2024-05-23 15:15 | disposition home or self-care (01) ==
PROVIDERS: Emergency Provider Nurse Practitioner; PCP Nurse Practitioner Family
DX: K04.7 Periapical abscess without sinus (principal); F17.200 Nicotine dependence, unspecified, uncomplicated; J44.9 Chronic obstructive pulmonary disease, unspecified; I10 Essential (primary) hypertension; E78.00 Pure hypercholesterolemia, unspecified; M19.90 Unspecified osteoarthritis, unspecified site; M10.9 Gout, unspecified
CPT/HCPCS: 99213; G0463

== ENCOUNTER 2025-01-05 10:00 | Emergency (ER) | payer MEDICARE, SELFPAY ==
--- NOTE | 2025-01-05 10:03 | ED_ITS ---
HPI - URI/Sore Throat General Chief Complaint: Upper Respiratory Infection Stated Complaint: cough Time Seen by Provider: 01/05/25 10:09 Source: patient, RN notes reviewed and old records reviewed Mode of arrival: ambulatory Limitations: no limitations History of Present Illness HPI Narrative: 64 year old male presents to the [facility] with 2-3 day history a cough. States it's my allergies. Denies any chest pain or shortness of breath. States that he coughs more at night. Unsure if he has been running a fever. Denies any sick contacts. Has not taken anything for symptoms. Treatments prior to arrival: none Related Data Home Medications ?Medication ?Instructions ?Recorded ?Confirmed ?Last Taken ?Type hydrochlorothiazide 12.5 mg capsule 12.5 mg PO DAILY 1 05/11/23 Unknown History losartan 50 mg tablet 50 mg PO DAILY 11/25/1904/13 Unknown History pravastatin 40 mg tablet 40 mg PO DAILY 12/23/2204/13 Unknown History allopurinol 100 mg tablet 100 mg PO DAILY 05/11/23 Unknown History ergocalciferol (vitamin D2) 1,250 1,250 mcg PO WEEKLY 05/11/23 05/11/23 Unknown History mcg (50,000 unit) capsule gabapentin 300 mg capsule 300 mg PO TID 05/11/2305/10 Unknown History montelukast 10 mg tablet 10 mg PO DAILY 05/11/2304/13 Unknown History atorvastatin 40 mg tablet mg 01/05/25 Unknown History baclofen 10 mg tablet mg 01/05/25 Unknown History diclofenac sodium 75 mg mg PO 01/05/25 Unknown Hist ory tablet,delayed release fluticasone propionate 50 intranasal 01/05/25 Unknown History mcg/actuation nasal spray,suspension gabapentin 100 mg capsule mg 01/05/25 Unknown History loratadine 10 mg tablet mg 01/05/25 Unknown History Allergies Allergy/AdvReac Type Severity Reaction Status Date / Time No Known Allergies Allergy Verified 01/05/25 10:17 Review of Systems Review of Systems: All systems reviewed & are unremarkable except as noted in HPI and below Constitutional: Constitutional: Reports no additional constitutional complaints ENT: Reports system reviewed and no additional complaints, except as documented Cardiovascular: Cardiovascular: Reports no additional cardiovascular complaints, Denies chest pain and Denies dyspnea Respiratory: Respiratory: Reports as per HPI, Denies chest congestion, Reports cough and Denies dyspnea Musculoskeletal: Musculoskeletal: Reports no additional musculoskeletal complaints Integumentary/Breasts: Skin/Breast: Reports system reviewed and no additional complaints, except as docu [facility] Past Medical History Medical History Arthritis COPD (chronic obstructive pulmonary disease) Seasonal allergies High cholesterol High blood pressure Gout Family History Family History Other Cerebrovascular accident Diabetes mellitus Family history of arthritis Family history of gout Family history of malignant neoplasm Hypertension Social History Social History Smoking status: Current every day smoker Alcohol intake: never Gender identity (if verbalized by the patient): Male Comments At the time of my signature, I reviewed and agree with the nursing past medical, surgical, social, and family history. There is no relevant family history pertinent to the patient complaint. Exam Const: General: cooperative, healthy appearing, comfortable, no acute distress, well developed, alert and well nourished Nutritional Appearance: well nourished Orientation/consciousness: patient oriented x3 Limitations: no limitations HENMT: Head: normal to inspection Ears: hearing grossly normal bilaterally, external ears normal, TM's normal bilaterally, EAC's normal, mastoids normal and no periauricular adenopathy Mouth: Yes Normal oral and palatal mucosa present, Yes lip normal, Yes tongue normal and Yes moist mucous membranes Throat: posterior oropharynx normal, uvula midline, postnasal drainage and no uvular edema Eyes: General: appearance normal, both eyes and all related structures Alignment and Position: alignment normal Neck: Neck: normal visual inspection, full ROM, no lymphadenopathy and no meningeal signs Chest: Chest palpation & inspection: normal inspection of the chest Resp: Effort & Inspection: normal respiratory effort and able to speak in complete sentences Auscultation: clear to auscultation bilaterally, no crackles, no rales, no rhonchi and no wheezes Cardio: Rate: regular rate Skin: General skin exam: normal color and no rashes or lesions noted Neuro: General: patient oriented x3, gait normal, moves all extremities and no meningeal signs Cognition (Neuro): normal cognition Speech: normal speech Gait exam (Neuro): Normal gait present Extrem: General: normal to inspection, full ROM, capillary refill normal and normal gait Psych: Appearance: grossly normal and well kempt Mental Status: mental sta tus grossly normal Speech and movement: Normal speech and movement present and Clear speech present Affect: normal affect Attitude: cooperative Course Course Level of Care: Express Care Visit Vital Signs Vital signs: Vital Signs Temperature 97.6 F 01/05/25 10:10 Pulse Rate 67 01/05/25 10:10 Respiratory Rate 16 01/05/25 10:10 Blood Pressure 127/73 01/05/25 10:10 Pulse Oximetry 100 01/05/25 10:10 Oxygen Delivery Room Air 01/05/25 10:10 Temperature 97.6 F 01/05/25 10:10 Pulse Rate 67 01/05/25 10:10 Respiratory Rate 16 01/05/25 10:10 Blood Pressure 127/73 01/05/25 10:10 Pulse Oximetry 100 01/05/25 10:10 Oxygen Delivery Room Air 01/05/25 10:10 Reviewed MDM - URI/Sore Throat MDM Narrative Medical decision making narrative: Patient sitting in exam. Patient is nontoxic, vitals stable. Patient 2 to 3 day history of a cough. Denies any other symptoms. No acute findings other than postnasal drainage noted exam patient is appropriate for outpatient treatment with close follow-up Discharge instructions reviewed with patient, as well as provided in writing per nursing staff. The instructions also include specific and strict return/GO TO THE ER as well as f/u information. All questions have been answered, and the patient deny any further questions with discharge and discharge plan. Some parts of this dictation were generated by voice recognition software and may contain typographical and/or grammatical inaccuracies. Differential Diagnosis Differential diagnosis: Likely upper respiratory infection, otitis media, sinusitis, viral infection, bronchitis, influenza and pharyngitis Critical Care Time Critical Care Time Critical Care Time: No Discharge Plan Discharge Clinical Impression: Upper respiratory infection, PND (post-nasal drip), Cough Patient Disposition: Home Condition: Stable Instructions: Upper Respiratory Infection (ED), Acute Cough (ED), Postnasal Drip (DC) Additional Instructions: Your symptoms are likely due to a viral illness, which is not treated with antibiotics. Typically viral infections last 7-10 days, can linger for couple of weeks. It is very important to treat your symptoms. Drink plenty of water, Gatorade, Pedialyte, ice pops or Jell-O. -Alternate Tylenol and Motrin per package directions for fever or pain. You can alternate every 4 hours -Antihistamine medication such as Zyrtec/Claritin/Janell during the day can help improve symptoms. -doing daily nasal irrigations can help relieve pressure your sinuses. Things like a Neti pot -Use Flonase twice a day for 5 days then daily to help reduce the inflammation and dry up your sinuses. -You can also use Mucinex. Be sure to drink plenty of water with this medication at least 8 ounces with every dose and it is important to drink 8 to 10 glasses of water per day. Water is a natural decongestant -Eat and drink things that are easy to swallow, like tea or soup, or popsicles. -Oral rinses such as: Salt water gargles and/or may use topical anesthetic (eg. Chloraseptic spray) or lozenges to relieve dryness or throat pain). -Frequent hand washing or hand tool storage attendant is one of the best ways to prevent spre ad of infection. -Using a vaporizer or humidifier at night will also help thin secretions and help with coughing up phlegm. -Follow up with primary care provider in 7-10 days if condition is not improving - For new or worsening symptoms go directly to the nearest ER Patient Language: [place] Island[place] Prescriptions: New methylprednisolone [Medrol (Loy)] 4 mg tablets,dose pack See Rx Instructions PO .COMPLEX Qty: 21 0RF Rx Instructions: orally per package directions loratadine 10 mg tablet 10 mg PO DAILY Qty: 30 0RF fluticasone propionate [Flonase Allergy Relief] 50 mcg/actuation spray,suspension 2 spray intranasal DAILY Qty: 16 0RF Rx Instructions: administer into each nostril No Action allopurinol 100 mg tablet 100 mg PO DAILY gabapentin 300 mg capsule 300 mg PO TID montelukast 10 mg tablet 10 mg PO DAILY ergocalciferol (vitamin D2) 1,250 mcg (50,000 unit) capsule 1,250 mcg PO WEEKLY ibuprofen 800 mg tablet 800 mg PO Q6H PRN (Reason: pain) Qty: 30 0RF atorvastatin 40 mg tablet baclofen 10 mg tablet diclofenac sodium 75 mg tablet,delayed release (DR/EC) PO gabapentin 100 mg capsule fluticasone propionate 50 mcg/actuation spray,suspension INTRANASAL loratadine 10 mg tablet losartan 50 mg Tablet 50 mg PO DAILY hydrochlorothiazide 12.5 mg Capsule 12.5 mg PO DAILY pravastatin 40 mg tablet 40 mg PO DAILY orphenadrine citrate 100 mg tablet extended release 100 mg PO Q12H PRN (Reason: spasms) Qty: 20 0RF Follow-up/Referrals: Gayle Galdamez APRN [Primary Care Provider, Family Practice] - 1 Week Clinical Impression: Upper respiratory infection; PND (post-nasal drip); Cough Time of Disposition: 10:37
[2025-01-05 10:10] VITALS: BP 127/73; PULSE 67; RESP 16; TEMP 36.4; O2SAT 100
== END 2025-01-05 10:42 | disposition home or self-care (01) ==
PROVIDERS: Emergency Provider Nurse Practitioner; PCP Nurse Practitioner Family
DX: J06.9 Acute upper respiratory infection, unspecified (principal); R09.82 Postnasal drip; R05.9 Cough, unspecified; F17.200 Nicotine dependence, unspecified, uncomplicated; I10 Essential (primary) hypertension; E78.00 Pure hypercholesterolemia, unspecified; J44.9 Chronic obstructive pulmonary disease, unspecified; M10.9 Gout, unspecified; M19.90 Unspecified osteoarthritis, unspecified site
CPT/HCPCS: 99213; G0463